=== PATIENT | male | born 1935 | race Caucasian/White ===

== ENCOUNTER 2016-07-19 09:36 | Inpatient (IN) | payer OTHER, MEDICARE ==
[~2016-07-19] VITALS: Ht 157.5 cm; Wt 76.7 kg
[~2016-07-19 09:36] MED LIST: LCTL45 PO; LEVO-459 PO; LSX20 PO; PROP20TA66 PO; PRT40 PO; SPRN100 PO; XFX550 PO
[2016-07-19] MEDS ORDERED: ALBUT/IPRATROP 3MG/0.5MG NEB 3 ML VIAL INH STA (10:33)
[2016-07-19] MEDS ORDERED: FOLI1TAB8 PO (10:45)
[2016-07-19] MEDS ORDERED: LACT10SO17 PO (10:45)
[2016-07-19] MEDS ORDERED: THIA100T11 PO (10:45)
[2016-07-19] MEDS ORDERED: MULT-506 PO (10:45)
[2016-07-19] MEDS ORDERED: SITA100T3 PO (10:45)
[2016-07-19] MEDS ORDERED: DOCU-94 PO (10:45)
[2016-07-19] MEDS ORDERED: PRLSR20 PO (10:45)
[2016-07-19] MEDS ORDERED: FURO-85 PO (10:45)
--- NOTE | 2016-07-19 11:10 | DIAGNOSTIC IMAGING REPORT ---
CHEST ONE VIEW PORTABLE CLINICAL HISTORY: Sepsis COMPARISON STUDY: 09/12/2014 FINDINGS: The heart is enlarged. There are bilateral interstitial opacities likely representing interstitial pulmonary edema although a interstitial inflammatory process could appear similar. There is no significant pleural fluid.[ IMPRESSION: Cardiomegaly and interstitial edema pattern. Clinical and radiographic follow-up is recommended. Electronically signed by: Moose Mancilla M.D. 07/19/2016 11:08 AM
[2016-07-19 11:23] LABS: BASO ABS # 0.09 K/uL (0-0.2); COMPLETE YES; EOS % 4.5 %; HEMATOCRIT 31.1 % (42-52); IG% 0.2 %; LYMPH % 17.2 %; LYMPH ABS # 0.77 K/uL (1.2-3.4); MEAN CELL VOLUME 102.6 fL (80-100); MEAN PLATELET VOLUME 10.4 fL (7.4-10.4); NEUT % 51.1 %; PLATELET COUNT 104 K/uL (130-400); RED BLOOD COUNT 3.03 M/uL (4.7-6.1); WHITE BLOOD COUNT 4.48 K/uL (4.8-10.8)
[2016-07-19] MEDS ORDERED: PIPERACILLIN/TAZOBACTAM 4.5 GM/100ML D5W IV STA (11:31)
[2016-07-19] MEDS ORDERED: DAPTOmycin IV 480 MG in SODIUM CHLORIDE 0.9% 50ML 50 ML IV STA (11:31)
[2016-07-19 11:43] LABS: INR 1.4 (0.9-1.1); PARTIAL THROMBOPLASTIN RATIO 1.2; PROTHROMBIN TIME (PATIENT) 15.7 SECONDS (9.0-12.0)
[2016-07-19] MEDS ORDERED: OSELTAMIVIR PHOSPHATE 75 MG CAP PO STA (11:52)
--- NOTE | 2016-07-19 11:55 | EMERGENCY ROOM VISIT NOTE ---
History Report prepared by Polly: Odette Juarez Under the Supervision of: Dr. Sal Schneider M.D. First contact with patient: 09:54 Chief Complaint: ILLNESS Stated Complaint: LIVER ISSUES, ABNORMAL LABS, DIZZY History of Present Illness The patient is a 80 year old male who presents to the Emergency Room with complaints of worsening illness that started one week ago. The patient has had his abdomen drained in the past. The patient's son states that the patient started to experience lower extremity edema 4 days ago. He took the patient to his PCP and they started him on medication that was supposed to resolve the edema in 2-3 days. When the patient's son visited him last night, he noticed that the medications were not working and the patient was more confused than normal. The patient is also experiencing a fever but when he was tested for a UTI at his PCP it was negative. The patient's son also states that the patient has gained 25 lbs of fluid weight. He states that the patient experiences similar symptoms whenever his ammonia is elevated. The patient's son adds that the "rattle" in the patient's chest is new since he saw his PCP. Source of History: family (son) Onset: one week ago Position: other (generalized) Quality: other (illness) Timing: worsening Associated Symptoms: + fevers Note: confusion, lower extremity edema Review of Systems See HPI for pertinent positives & negatives. A total of 10 systems reviewed and were otherwise negative. Past Medical & Surgical Medical Problems: (1) Influenza A, cirrhosis Family History No pertinent family history Social History Smoking Status: Former Smoker Alcohol Use: heavy Housing Status: lives with family Current/Historical Medications Scheduled Docusate Sodium (Colace), 1 CAP PO DAILY Folic Acid (Folvite), 1 MG PO DAILY Furosemide (Lasix), 20 MG PO DIRECTED Lactulose (Chronulac), 15 ML PO DAILY Multivitamin (Multivitamin), 1 TAB PO DAILY Omeprazole (Prilosec), 20 MG PO DAILY Propranolol HCl (Propranolol HCl), 20 MG PO BID Rifaximin (Xifaxan), 550 MG PO BID Sitagliptin Phosphate (Januvia), 100 MG PO DAILY Spironolactone (Spironolactone), 100 MG PO QAM Thiamine Hcl (Vitamin B-1), 100 MG PO DAILY Allergies Coded Allergies: No Known Allergies (Unverified , 07/19/16) Physical Exam Vital Signs Date Time Temp Pulse Resp B/P Pulse Ox O2 Delivery O2 Flow Rate FiO2 07/19/16 13:21 73 19 119/52 97 Nasal Cannula 3.0 07/19/16 12:46 88 Room Air 07/19/16 12:46 97 Nasal Cannula 3.0 07/19/16 12:10 69 20 113/56 91 Room Air 07/19/16 11:13 67 20 111/71 07/19/16 10:23 67 07/19/16 09:41 37.7 76 18 116/64 95 Room Air Physical Exam GENERAL: Patient is a healthy-appearing well-nourished older male HEAD: Normocephalic atraumatic EYES: Ocular movements intact pupils equal and react to light OROPHARYNX mucous membranes are moist no exudates present no erythema or edema present NECK: Supple no nuchal rigidity CHEST: Good equal expansion LUNGS: Clear and equal to auscultation CARDIAC: Normal S1 and S2 ABDOMEN: Soft nontender no guarding BACK: No CVA tenderness EXTREMITIES: No pain upon palpation normal muscle strength in all groups 2+ pitting edema bilaterally no clubbing or cyanosis NEURO: Patient is confused but following commands. Alert. Cranial Nerves 2-12 grossly intact Medical Decision & Procedures ER Provider Diagnostic Interpretation: X-ray results as stated below per interpretation by me and the radiologist: CHEST ONE VIEW PORTABLE CLINICAL HISTORY: Sepsis COMPARISON STUDY: 09/12/2014 FINDINGS: The heart is enlarged. There are bilateral interstitial opacities likely representing interstitial pulmonary edema although a interstitial inflammatory process could appear similar. There is no significant pleural fluid.[ IMPRESSION: Cardiomegaly and interstitial edema pattern. Clinical and radiographic follow-up is recommended. Electronically signed by: Moose Mancilla M.D. 07/19/2016 11:08 AM Laboratory Results 07/19/16 11:00 Red Blood Count 3.03, Mean Corpuscular Volume 102.6, Mean Corpuscular Hemoglobin 36.0, Mean Corpuscular Hemoglobin Concent 35.0, Mean Platelet Volume 10.4, Neutrophils (%) (Auto) 51.1, Lymphocytes (%) (Auto) 17.2, Monocytes (%) ( Auto) 25.0, Eosinophils (%) (Auto) 4.5, Basophils (%) (Auto) 2.0, Neutrophils # (Auto) 2.29, Lymphocytes # (Auto) 0.77, Monocytes # (Auto) 1.12, Eosinophils # ( Auto) 0.20, Basophils # (Auto) 0.09 07/19/16 11:00 Test 07/19/16 11:00 07/19/16 11:03 07/19/16 11:05 07/19/16 12:00 White Blood Count 4.48 K/uL (4.8-10.8) Red Blood Count 3.03 M/uL (4.7-6.1) Hemoglobin 10.9 g/dL (14.0-18.0) Hematocrit 31.1 % (42-52) Mean Corpuscular Volume 102.6 fL (80-100) Mean Corpuscular Hemoglobin 36.0 pg (25-34) Mean Corpuscular Hemoglobin Concent 35.0 g/dl (32-36) Platelet Count 104 K/uL (130-400) Mean Platelet Volume 10.4 fL (7.4-10.4) Neutrophils (%) (Auto) 51.1 % Lymphocytes (%) (Auto) 17.2 % Monocytes (%) (Auto) 25.0 % Eosinophils (%) (Auto) 4.5 % Basophils (%) (Auto) 2.0 % Neutrophils # (Auto) 2.29 K/uL (1.4-6.5) Lymphocytes # (Auto) 0.77 K/uL (1.2-3.4) Monocytes # (Auto) 1.12 K/uL (0.11-0.59) Eosinophils # (Auto) 0.20 K/uL (0-0.5) Basophils # (Auto) 0.09 K/uL (0-0.2) RDW Standard Deviation 61.8 fL (36.4-46.3) RDW Coefficient of Variation 16.5 % (11.5-14.5) Immature Granulocyte % (Auto) 0.2 % Immature Granulocyte # (Auto) 0.01 K/uL (0.00-0.02) Prothrombin Time 15.7 SECONDS (9.0-12.0) Prothromb Time International Ratio 1.4 (0.9-1.1) Activated Partial Thromboplast Time 31.7 SECONDS (21.0-31.0) Partial Thromboplastin Ratio 1.2 Anion Gap 10.0 mmol/L (3-11) Est Creatinine Clear Calc Drug Dose 34.5 ml/min Estimated GFR () 49.5 Estimated GFR (Non- 42.7 BUN/Creatinine Ratio 12.5 (10-20) Calcium Level 8.7 mg/dl (8.5-10.1) Total Bilirubin 2.4 mg/dl (0.2-1) Aspartate Amino Transf (AST/SGOT) 77 U/L (15-37) Alanine Aminotransferase (ALT/SGPT) 26 U/L (12-78) Alkaline Phosphatase 111 U/L (45-117) Ammonia < 10.0 umol/L (11-32) Total Creatine Kinase 139 U/L (39-308) Creatine Kinase MB 0.8 ng/ml (0.5-3.6) Creatine Kinase MB Ratio 0.6 (0-3.0) Troponin I 0.082 ng/ml (0-0.045) Total Protein 5.9 gm/dl (6.4-8.2) Albumin 2.3 gm/dl (3.4-5.0) Globulin 3.6 gm/dl (2.5-4.0) Albumin/Globulin Ratio 0.6 (0.9-2) Influenza Type A Antigen POS for Influ A (NEG) Influenza Type B Antigen Neg for Influ B (NEG) Bedside Lactic Acid Venous 2.41 mmol/L (0.90-1.70) Urine Color DK YELLOW Urine Appearance CLEAR (CLEAR) Urine pH 5.0 (4.5-7.5) Urine Specific [place] 1.016 (1.000-1.030) Urine Protein NEG (NEG) Urine Glucose (UA) NEG (NEG) Urine Ketones NEG (NEG) Urine Occult Blood NEG (NEG) Urine Nitrite NEG (NEG) Urine Bilirubin NEG (NEG) Urine Urobilinogen NEG (NEG) Urine Leukocyte Esterase NEG (NEG) Urine WBC (Auto) 0 /hpf (0-5) Urine RBC (Auto) 0-4 /hpf (0-4) Urine Hyaline Casts (Auto) 1-5 /lpf (0-5) Urine Epithelial Cells (Auto) 5-10 /lpf (0-5) Urine Bacteria (Auto) NEG (NEG) Test 07/19/16 13:30 Labs reviewed by ED physician. Medications Administered Medications (Trade) Dose Ordered Sig/Christi Route Start Time Stop Time Status Last Admin Dose Admin Albuterol/ Ipratropium (Duoneb) 3 ml NOW STAT INH 07/19/16 10:33 07/19/16 10:35 DC 07/19/16 11:11 3 ML Piperacillin Sod/ Tazobactam Sod 4.5 gm 4.5 gm NOW STAT IV 07/19/16 11:31 07/19/16 11:32 DC 07/19/16 12:04 4.5 GM Daptomycin/Sodium Chloride (Cubicin IV/Nss 50ml) 59.6 ml @ 100 mls/hr NOW STAT IV 07/19/16 11:31 07/19/16 12:06 DC 07/19/16 12:40 100 MLS/HR Oseltamivir Phosphate 75 mg 75 mg NOW STAT PO 07/19/16 11:52 07/19/16 11:53 DC 07/19/16 12:05 75 MG Sodium Chloride (Nss 1000ml) 1,000 ml @ 999 mls/hr Q1H1M STAT IV 07/19/16 11:58 07/19/16 12:58 DC 07/19/16 12:06 999 MLS/HR Ibuprofen (Motrin Tab) 600 mg NOW STAT PO 07/19/16 11:58 07/19/16 11:59 DC 07/19/16 12:40 600 MG ECG Indication: altered mental status Rate (beats per minute): 75 Rhythm: sinus rhythm Findings: no acute ischemic change, no ectopy, other (old inferior infarct) ED Course 1029: Past medical records reviewed. The patient was evaluated in room C3. A complete history and physical examination was performed. 1033: Ordered DuoNeb 3 ml INH 1131: Ordered Daptomycin 480 mg/Sodium Chloride 59.6 ml @ 100 mls/hr IV, Zosyn 4.5 gm IV 1146: Upon reexamination the patient is resting comfortably. I discussed results and treatment plan with the patient. He verbalizes agreement and understanding. The patient will be evaluated for further management. 1152: Ordered Tamiflu Cap 75 mg PO 1158: Ordered Ibuprofen 600 mg PO, Sodium Chloride 1000 ml @ 999 mls/hr IV 1201: I discussed the patient's case with Dr. Eduardo LOPEZ, he has agreed to evaluate the patient for further management and care. Medical Decision Differential diagnosis: Etiologies such as metabolic, infection, hypo/hyperglycemia, electrolyte abnormalities, cardiac sources, intracerebral event, toxicologic, neurologic, as well as others were entertained. This is an 80-year-old male who presents to the emergency department complaining of altered mental status. The patient has been running fevers. For this reason a lactate was obtained along with blood cultures. The patient is positive for influenza. I do not believe the patient can be taking care of himself at home for this reason I did discuss the case with the hospitalist who agreed to admit the patient. The patient was given a DuoNeb breathing treatment in the emergency department and started on antibiotics. He was then started on Tamiflu and his flu swab came back positive. Both patient and family were in agreement with the treatment plan. Consults Time Called: 1145 Consulting Physician: Dr. Eduarod JASMINE Returned Call: 1201 I discussed the patient's case with Dr. Eduardo JASMINE, he has agreed to evaluate the patient for further management and care. Impression Primary Impression: Altered mental status Additional Impression: Influenza A Critical Care I have personally spent greater than 30 minutes of critical care time in the direct management of this patient. This includes bedside care, interpretation of diagnostic studies, and testing, discussion with consultants, patient, and family members, and other required patient management activities. This 30 minutes is in excess of all separately billable procedures. Scribe Attestation The scribe's documentation has been prepared under my direction and personally reviewed by me in its entirety. I confirm that the note above accurately reflects all work, treatment, procedures, and medical decision making performed by me. Departure Information Dispostion Being Evaluated By Hospitalist Edinson Figueredo D.O. (PCP) Patient Instructions A Signature Page, My [facility]
[2016-07-19 11:57] LABS: BUN/CREATININE RATIO 12.5 (10-20); CALCIUM 8.7 mg/dl (8.5-10.1); CREATININE 1.5 mg/dl (0.60-1.40); POTASSIUM 3.9 mmol/L (3.5-5.1)
[2016-07-19] MEDS ORDERED: SODIUM CHLORIDE 0.9% 1000ML 1,000 ML IV STA (11:58)
[2016-07-19] MEDS ORDERED: IBUPROFEN 600 MG TAB PO STA (11:58)
[2016-07-19 12:07] LABS: ALB/GLOB RATIO 0.6 (0.9-2); CKMB/CK RATIO 0.6 (0-3.0)
[2016-07-19 12:27] LABS: URINE APPEARANCE CLEAR (CLEAR); URINE BILIRUBIN NEG (NEG); URINE COLOR DK YELLOW; URINE NITRITE NEG (NEG); URINE SPECIFIC GRAVITY 1.016 (1.000-1.030); UROBILINOGEN NEG (NEG); ZZUR CULT IF INDIC CLEAN CATCH NO
[2016-07-19 12:29] LABS: MANUAL MICROSCOPIC REQUIRED? NO; REVIEW REQ? NO
[2016-07-19] MEDS ORDERED: ONDANSETRON INJ 2 MG/ML 2 ML VIAL IV PRN (13:00)
[2016-07-19] MEDS ORDERED: ACETAMINOPHEN 325 MG TAB PO PRN (13:00)
--- NOTE | 2016-07-19 14:11 | History and Physical ---
History & Physical Date & Time of Service: Jul 19, 2016 at 13:29 Chief Complaint: Liver Issues, Abnormal Labs, Dizzy Primary Care Physician: Edinson Guevara D.O. History of Present Illness Source: patient, family This is an 80 yo M with PMhx Cirrhosis of the liver, hepatic encephalopathy, dementia, who presents to the ED after one day of confusion, bowel and bladder incontinence, worsening cough and increased peripheral edema within the past week. History is mainly supplied by the patient's son, SIOMARA. The patient's other son is whom he lives with, but currently not present. Last Thursday the patient went to see his PCP for increased edema of the legs, there his lasix was increased from 20 mg to 40 mg and told to take the increased dose for 7days. SIOMARA was out of town for the past 5 days and when he returned, the patient had developed worsening "rattling" cough and appeared to be slightly more confused, he had one episode of loose stools last evening. This morning he developed bowel incontinence has had several episodes of loose stools. No vomiting or nausea. Son reports the patient appeared to be SOB with ambulation, although the patient denies this. At baseline the patient is not oriented to date or time. Past Medical/Surgical History 1. Cirrhosis of the liver 2. Hepatic Encephalopathy 3. Dementia Social History Smoking Status: Former Smoker Smokeless Tobacco Use: No Alcohol Use: previous alcoholism Drug Use: none Housing status: lives with family Occupational Status: retired Allergies Coded Allergies: No Known Allergies (Unverified , 07/19/16) Home Medications Scheduled Docusate Sodium (Colace), 1 CAP PO DAILY Folic Acid (Folvite), 1 MG PO DAILY Furosemide (Lasix), 20 MG PO DIRECTED Lactulose (Chronulac), 15 ML PO DAILY Multivitamin (Multivitamin), 1 TAB PO DAILY Omeprazole (Prilosec), 20 MG PO DAILY Propranolol HCl (Propranolol HCl), 20 MG PO BID Rifaximin (Xifaxan), 550 MG PO BID Sitagliptin Phosphate (Januvia), 100 MG PO DAILY Spironolactone (Spironolactone), 100 MG PO QAM Thiamine Hcl (Vitamin B-1), 100 MG PO DAILY Review of Systems Constitutional: No chills, No fever, No sweats ENT: No nasal symptoms, No sore throat, No tinnitus Respiratory: + cough, + shortness of breath, No sputum Cardiovascular: No chest pain, No palpitations Abdomen: No constipation, No diarrhea, No nausea, No pain, No vomiting Musculoskeletal: + swelling, No calf pain, No joint pain Neurologic: No numbness/tingling, No paralysis Physical Exam Vital Signs Date Time Temp Pulse Resp B/P Pulse Ox O2 Delivery O2 Flow Rate FiO2 07/19/16 13:21 73 19 119/52 97 Nasal Cannula 3.0 07/19/16 12:46 88 Room Air 07/19/16 12:46 97 Nasal Cannula 3.0 07/19/16 12:10 69 20 113/56 91 Room Air 07/19/16 11:13 67 20 111/71 07/19/16 10:23 67 07/19/16 09:41 37.7 76 18 116/64 95 Room Air General Appearance: WD/WN, no apparent distress, + pertinent finding ( generalized anasarca) Head: normocephalic, atraumatic Eyes: PERRL, EOMI ENT: pharynx normal Neck: supple, no JVD Respiratory/Chest: lungs clear, no respiratory distress, no accessory muscle use Cardiovascular: regular rate, rhythm, no JVD Abdomen/GI: non tender, + distended, + pertinent finding (generalized anasarca) Back: normal inspection, no CVA tenderness Extremities/Musculoskelatal: no calf tenderness, + pertinent finding (2+ pitting edema of BLE up to thighs, nontender to palpation.) Neurologic/Psych: no motor/sensory deficits, alert, + disoriented Skin: normal color, warm/dry Diagnostics Laboratory Results Results Past 24 Hours Test 07/19/16 11:00 07/19/16 11:03 07/19/16 11:05 07/19/16 12:00 Range/Units White Blood Count 4.48 4.8-10.8 K/uL Red Blood Count 3.03 4.7-6.1 M/uL Hemoglobin 10.9 14.0-18.0 g/dL Hematocrit 31.1 42-52 % Mean Corpuscular Volume 102.6 80-100 fL Mean Corpuscular Hemoglobin 36.0 25-34 pg Mean Corpuscular Hemoglobin Concent 35.0 32-36 g/dl Platelet Count 104 130-400 K/uL Mean Platelet Volume 10.4 7.4-10.4 fL Neutrophils (%) (Auto) 51.1 % Lymphocytes (%) (Auto) 17.2 % Monocytes (%) (Auto) 25.0 % Eosinophils (%) (Auto) 4.5 % Basophils (%) (Auto) 2.0 % Neutrophils # (Auto) 2.29 1.4-6.5 K/uL Lymphocytes # (Auto) 0.77 1.2-3.4 K/uL Monocytes # (Auto) 1.12 0.11-0.59 K/uL Eosinophils # (Auto) 0.20 0-0.5 K/uL Basophils # (Auto) 0.09 0-0.2 K/uL RDW Standard Deviation 61.8 36.4-46.3 fL RDW Coefficient of Variation 16.5 11.5-14.5 % Immature Granulocyte % (Auto) 0.2 % Immature Granulocyte # (Auto) 0.01 0.00-0.02 K/uL Prothrombin Time 15.7 9.0-12.0 SECONDS Prothromb Time International Ratio 1.4 0.9-1.1 Activated Partial Thromboplast Time 31.7 21.0-31.0 SECONDS Partial Thromboplastin Ratio 1.2 Sodium Level 140 136-145 mmol/L Potassium Level 3.9 3.5-5.1 mmol/L Chloride Level 102 98-107 mmol/L Carbon Dioxide Level 28 21-32 mmol/L Anion Gap 10.0 3-11 mmol/L Blood Urea Nitrogen 19 7-18 mg/dl Creatinine 1.50 0.60-1.40 mg/dl Est Creatinine Clear Calc Drug Dose 34.5 ml/min Estimated GFR () 49.5 Estimated GFR (Non- 42.7 BUN/Creatinine Ratio 12.5 10-20 Random Glucose 87 70-99 mg/dl Calcium Level 8.7 8.5-10.1 mg/dl Total Bilirubin 2.4 0.2-1 mg/dl Aspartate Amino Transf (AST/SGOT) 77 15-37 U/L Alanine Aminotransferase (ALT/SGPT) 26 12-78 U/L Alkaline Phosphatase 111 45-117 U/L Ammonia < 10.0 11-32 umol/L Total Creatine Kinase 139 39-308 U/L Creatine Kinase MB 0.8 0.5-3.6 ng/ml Creatine Kinase MB Ratio 0.6 0-3.0 Troponin I 0.082 0-0.045 ng/ml Total Protein 5.9 6.4-8.2 gm/dl Albumin 2.3 3.4-5.0 gm/dl Globulin 3.6 2.5-4.0 gm/dl Albumin/Globulin Ratio 0.6 0.9-2 Influenza Type A Antigen POS for Influ A NEG Influenza Type B Antigen Neg for Influ B NEG Bedside Lactic Acid Venous 2.41 0.90-1.70 mmol/L Urine Color DK YELLOW Urine Appearance CLEAR CLEAR Urine pH 5.0 4.5-7.5 Urine Specific [place] 1.016 1.000-1.030 Urine Protein NEG NEG Urine Glucose (UA) NEG NEG Urine Ketones NEG NEG Urine Occult Blood NEG NEG Urine Nitrite NEG NEG Urine Bilirubin NEG NEG Urine Urobilinogen NEG NEG Urine Leukocyte Esterase NEG NEG Urine WBC (Auto) 0 0-5 /hpf Urine RBC (Auto) 0-4 0-4 /hpf Urine Hyaline Casts (Auto) 1-5 0-5 /lpf Urine Epithelial Cells (Auto) 5-10 0-5 /lpf Urine Bacteria (Auto) NEG NEG Test 07/19/16 13:00 Range/Units Microbiology Results 07/19/16 Blood Culture, Received Pending 07/19/16 Blood Culture, Received Pending Diagnostic Radiology Liver ultrasound HISTORY: Hepatic cirrhosis FINDINGS: Ultrasound evaluation of the right upper quadrant confirms presence of multiple gallstones within the gallbladder lumen. Gallbladder wall shows no evidence for significant thickening. The hepatic common mild duct is somewhat distended at 8 mm distally. Liver shows a outer cortical scalloping and mild in homogeneity. Potentially is reversal of flow within the portal venous structure. Right kidney is negative for hydronephrosis. Pancreas is poorly seen due to overlying bowel content. IMPRESSION:. 1. Gallstones. 2. Expected bile duct level millimeters with intrahepatic there is normal. 3. Probable hepatic cirrhosis. 4. Mild reversal of vascular flow within the portal vein. Electronically signed by: Alberto Ferrari M.D. 05/04/2015 9:13 AM CHEST ONE VIEW PORTABLE CLINICAL HISTORY: Sepsis COMPARISON STUDY: 09/12/2014 FINDINGS: The heart is enlarged. There are bilateral interstitial opacities likely representing interstitial pulmonary edema although a interstitial inflammatory process could appear similar. There is no significant pleural fluid.[ IMPRESSION: Cardiomegaly and interstitial edema pattern. Clinical and radiographic follow-up is recommended. Electronically signed by: Moose Mancilla M.D. 07/19/2016 11:08 AM Impression Assessment and Plan This is an 80 yo M with PMhx Cirrhosis of the liver, hepatic encephalopathy, dementia, who presents to the ED after one day of confusion, bowel and bladder incontinence, worsening cough and increased peripheral edema within the past week. Lactic Acidosis / Metabolic Encephalopathy secondary to Influenza A - Admit to med/surg - Pt Influenza A + on screening - tamiflu started - CXR reviewed as above showing increased interstitial edema - Lactic acid= 2.41 upon admission, administered 1 L NSS bolus in the ED, will recheck lactic acid now - No further IVFs at this time due to peripheral edema and abdominal anasarca - O2 sats mid 90s on 3L - Will check Echo - No need for CT of the head as pt remembers falling, no LOC, no trauma to the head - Supportive therapy with tylenol, cough aids, incentive spirometry - Loose bowels likely related to GI influenza, will check stool studies to rule out. - PT/OT consulted Cirrhosis - Liver U/S reviewed as above - Severe pitting edema of BLE - no fluids with this as pt is eating and drinking without difficulty - Continue lactulose and rifaximin - pt with loose stools likely due to GI influenza - Ammonia level is<10 - INR =1.4 Dementia - Pt is not oriented to time/date or place at baseline, cannot recall short term events DVT ppx: teds, scds CODE STATUS: Full Code, Pts children plan to discuss this further and notify staff if any changes to their decision. Disposition: Lives with son, from home. Level of Care Med/Surg Advanced Directives Existing Advance Directive: No Existing Living Will: No Existing Power of Bending Press Operator: No Existing Health Care Proxy: No Resuscitation Status FULL RESUSCITATION VTE Prophylaxis VTE Risk Assessment Done? Y/N: Yes Risk Level: Low
[2016-07-19 16:23] VITALS: BP 108/55; PULSE 68; TEMP 36.7; O2SAT 94; Ht 157.5 cm; Wt 76.7 kg
--- NOTE | 2016-07-19 16:38 | DIAGNOSTIC IMAGING REPORT ---
RIGHT SHOULDER MIN 2 VIEWS ROUTINE CLINICAL HISTORY: Right shoulder pain status post trauma COMPARISON: None. DISCUSSION: No fractures or dislocations are visualized. There are no visible periarticular calcifications present. The heart is enlarged. There is an interstitial pulmonary edema pattern. IMPRESSION: No fractures or dislocations identified. Electronically signed by: Moose Mancilla M.D. 07/19/2016 4:36 PM
[2016-07-19] MEDS: RIFAXIMIN TAB 550 MG TAB PO SCH (19:42)
[2016-07-20 00:14] VITALS: BP 92/51; PULSE 96; TEMP 36.6; O2SAT 96
[2016-07-20 06:45] LABS: HEMATOCRIT 27.6 % (42-52); MEAN CELL VOLUME 104.9 fL (80-100); MEAN CORPUSCULAR HEMOGLOBIN 36.5 pg (25-34); MEAN CORPUSCULAR HGB CONC 34.8 g/dl (32-36); RED BLOOD COUNT 2.63 M/uL (4.7-6.1); WHITE BLOOD COUNT 4.47 K/uL (4.8-10.8)
[2016-07-20 07:11] LABS: MEAN PLATELET VOLUME 9.7 fL (7.4-10.4); PLATELET COUNT 85 K/uL (130-400)
[2016-07-20 07:12] LABS: BASO % 1.3 %; BASO ABS # 0.06 K/uL (0-0.2); COMPLETE YES; EOS % 11.6 %; IG% 0.2 %; LYMPH % 18.6 %; LYMPH ABS # 0.83 K/uL (1.2-3.4); MONO % 19.2 %; NEUT % 49.1 %; PLT ESTIMATE DECREASED
[2016-07-20 07:13] LABS: BUN/CREATININE RATIO 12.2 (10-20); CALCIUM 8.2 mg/dl (8.5-10.1); CREATININE 1.7 mg/dl (0.60-1.40); POTASSIUM 3.7 mmol/L (3.5-5.1)
[2016-07-20 08:07] VITALS: BP 110/52; PULSE 87; TEMP 36.8; O2SAT 93
[2016-07-20] MEDS: SITAGLIPTIN 100 MG TAB PO SCH (08:38)
[2016-07-20] MEDS: THIAMINE HCL 100 MG TAB PO SCH (08:38)
[2016-07-20] MEDS: RIFAXIMIN TAB 550 MG TAB PO SCH ×2 (08:38→20:27)
[2016-07-20] MEDS: PANTOprazole SOD 40 MG TAB PO SCH (08:38)
[2016-07-20] MEDS: LACTULOSE SYRUP 10 GM/15 ML BTL 473 ML PO SCH (09:03)
[2016-07-20 09:27] VITALS: BP 141/70; O2SAT 100
[2016-07-20] MEDS ORDERED: SPIRONOLACTONE 100 MG TAB PO ONE (09:30)
[2016-07-20] MEDS ORDERED: FUROSEMIDE 40 MG TAB PO ONE (09:30)
[2016-07-20 15:25] VITALS: BP 118/73; PULSE 89; TEMP 36.7; O2SAT 96
--- NOTE | 2016-07-20 16:18 | Progress Note ---
Subjective Date of Service: Jul 20, 2016. Subjective Pt evaluation today including: conversation w/ patient, physical exam, lab review, review of inpatient medication list Pain: no pain today PO Intake: adequate Voiding: no voiding problems no issues overnight patient oriented to person and place, unsure of month or year no complaints except for some weakness Problem List Medical Problems: (1) Altered mental status Status: Acute (2) Influenza A Status: Acute Review of Systems Constitutional: + fatigue, + weakness Cardiac: + edema Neurologic: + balance problems, + weakness All Other Systems: Reviewed and Negative Medications Current Inpatient Medications Medications (Trade) Dose Ordered Sig/Christi Route Start Time Stop Time Status Last Admin Dose Admin Acetaminophen (Tylenol Tab) 650 mg Q4H PRN PO 07/19/16 13:00 08/18/16 12:59 Ondansetron HCl (Zofran Inj) 4 mg Q6H PRN IV 07/19/16 13:00 08/18/16 12:59 Lactulose (Chronulac Syrup) 10 gm DAILY PO 07/20/16 08:00 08/19/16 08:59 07/20/16 09:03 10 GM Rifaximin (Xifaxan Tab) 550 mg BID PO 07/19/16 20:00 08/18/16 20:59 07/20/16 08:38 550 MG Sitagliptin Phosphate (Januvia Tab) 50 mg DAILY PO 07/20/16 08:00 08/19/16 08:59 07/20/16 08:38 50 MG Thiamine HCl (Vitamin B-1 Tab) 100 mg DAILY PO 07/20/16 08:00 08/19/16 08:59 07/20/16 08:38 100 MG Pantoprazole Sodium (Protonix Tab) 40 mg DAILY PO 07/20/16 08:00 08/19/16 08:59 07/20/16 08:38 40 MG Propranolol HCl (Inderal Tab) 20 mg BID PO 07/20/16 20:00 08/19/16 19:59 Spironolactone (Aldactone Tab) 100 mg QAM PO 07/21/16 08:00 08/20/16 07:59 Furosemide (Lasix tab) 40 mg QAM PO 07/21/16 08:00 08/20/16 07:59 Objective Vital Signs Date Time Temp Pulse Resp B/P Pulse Ox O2 Delivery O2 Flow Rate FiO2 07/20/16 15:25 36.7 89 20 118/73 96 07/20/16 15:15 Nasal Cannula 3.0 07/20/16 09:27 100 07/20/16 08:07 36.8 87 20 110/52 93 2.0 07/20/16 08:00 Nasal Cannula 3.0 07/20/16 00:30 Nasal Cannula 3.0 07/20/16 00:14 36.6 96 18 92/51 96 Nasal Cannula 2.0 07/19/16 19:25 Nasal Cannula 07/19/16 16:23 36.7 68 18 108/55 94 Nasal Cannula 3.0 Physical Exam General Appearance: WD/WN, no apparent distress Eyes: normal inspection, EOMI, sclerae normal ENT: normal ENT inspection, hearing grossly normal, pharynx normal Neck: supple, no adenopathy, no JVD, trachea midline Respiratory/Chest: chest non-tender, lungs clear, normal breath sounds, no respiratory distress, no accessory muscle use Cardiovascular: regular rate, rhythm, no gallop, no JVD, no murmur Abdomen: normal bowel sounds, non tender, soft, no organomegaly Extremities: normal range of motion, non-tender, normal inspection, no calf tenderness, + pedal edema (pitting, 2 plus bilaterally) Neurologic/Psychiatric: water pollution specialist II-XII nml as tested, alert, normal mood/affect, + abnormal gait, + motor weakness, + disoriented (to time, oriented person and place) Skin: normal color, warm/dry, no rash Laboratory Results Last 24 Hours Test 07/20/16 06:24 White Blood Count 4.47 K/uL Red Blood Count 2.63 M/uL Hemoglobin 9.6 g/dL Hematocrit 27.6 % Mean Corpuscular Volume 104.9 fL Mean Corpuscular Hemoglobin 36.5 pg Mean Corpuscular Hemoglobin Concent 34.8 g/dl Platelet Count 85 K/uL Mean Platelet Volume 9.7 fL Neutrophils (%) (Auto) 49.1 % Lymphocytes (%) (Auto) 18.6 % Monocytes (%) (Auto) 19.2 % Eosinophils (%) (Auto) 11.6 % Basophils (%) (Auto) 1.3 % Neutrophils # (Auto) 2.19 K/uL Lymphocytes # (Auto) 0.83 K/uL Monocytes # (Auto) 0.86 K/uL Eosinophils # (Auto) 0.52 K/uL Basophils # (Auto) 0.06 K/uL RDW Standard Deviation 63.5 fL RDW Coefficient of Variation 16.6 % Immature Granulocyte % (Auto) 0.2 % Immature Granulocyte # (Auto) 0.01 K/uL Platelet Estimate DECREASED Sodium Level 140 mmol/L Potassium Level 3.7 mmol/L Chloride Level 106 mmol/L Carbon Dioxide Level 27 mmol/L Anion Gap 7.0 mmol/L Blood Urea Nitrogen 21 mg/dl Creatinine 1.70 mg/dl Est Creatinine Clear Calc Drug Dose 30.1 ml/min Estimated GFR () 42.6 Estimated GFR (Non- 36.7 BUN/Creatinine Ratio 12.2 Random Glucose 79 mg/dl Calcium Level 8.2 mg/dl Assessment and Plan 80 yo male with history of cirrhosis, well compensated normally on Lactulose, Rifaximin as well as Lasix and Aldactone. 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
[2016-07-20 20:25] VITALS: BP 117/63; PULSE 90; TEMP 36.7; O2SAT 94
[2016-07-20] MEDS: PROPRANOLOL HCL 20 MG TAB PO SCH (20:27)
[2016-07-21] VITALS (8 sets, daily range): BP systolic 111–117; BP diastolic 62–63; PULSE 60–85; TEMP 36.5–36.8; O2SAT 85–99
[2016-07-21 06:10] LABS: HEMATOCRIT 26.1 % (42-52); MEAN CELL VOLUME 104.8 fL (80-100); MEAN CORPUSCULAR HEMOGLOBIN 36.9 pg (25-34); MEAN CORPUSCULAR HGB CONC 35.2 g/dl (32-36); RED BLOOD COUNT 2.49 M/uL (4.7-6.1)
[2016-07-21 06:34] LABS: BUN/CREATININE RATIO 11.5 (10-20); CALCIUM 7.9 mg/dl (8.5-10.1); CREATININE 1.7 mg/dl (0.60-1.40); POTASSIUM 3.8 mmol/L (3.5-5.1)
[2016-07-21 06:41] LABS: MEAN PLATELET VOLUME 10.6 fL (7.4-10.4); PLATELET COUNT 85 K/uL (130-400)
[2016-07-21 06:43] LABS: BASO % 1.3 %; BASO ABS # 0.06 K/uL (0-0.2); COMPLETE YES; EOS % 7.8 %; IG% 0.2 %; LARGE PLATELETS 1+; LYMPH % 25.4 %; LYMPH ABS # 1.17 K/uL (1.2-3.4); MONO % 16.1 %; NEUT % 49.2 %
[2016-07-21] MEDS: THIAMINE HCL 100 MG TAB PO SCH (07:23)
[2016-07-21] MEDS: SITAGLIPTIN 100 MG TAB PO SCH (07:23)
[2016-07-21] MEDS: PROPRANOLOL HCL 20 MG TAB PO SCH ×2 (07:23→20:00)
[2016-07-21] MEDS: PANTOprazole SOD 40 MG TAB PO SCH (07:23)
[2016-07-21] MEDS: RIFAXIMIN TAB 550 MG TAB PO SCH ×2 (07:24→20:00)
[2016-07-21] MEDS: SPIRONOLACTONE 100 MG TAB PO SCH (07:24)
[2016-07-21] MEDS: LACTULOSE SYRUP 10 GM/15 ML BTL 473 ML PO SCH (07:26)
[2016-07-21] MEDS: FUROSEMIDE 40 MG TAB PO SCH (07:26)
--- NOTE | 2016-07-21 09:08 | Progress Note ---
Subjective Date of Service: Jul 21, 2016. Subjective Pt evaluation today including: conversation w/ patient, physical exam, chart review, lab review, review of studies, conversation w/ sql consultant, review of inpatient medication list Feeling better, but the nurse report possible dropped to 85 when out of bed to the restroom and in room air, resume NC O2, oxygen level improved when on nasal cannula oxygen Report has history of smoking, still has mild cough, pleasant conversational Problem List Medical Problems: (1) Altered mental status Status: Acute (2) Influenza A Status: Acute Review of Systems Constitutional: + fatigue, No chills, No fever, No problem reported, No sweats , No weakness, No weight loss Eyes: No diplopia, No discharge, No eye pain, No redness, No worsening of vision ENT: No dental problems, No hearing loss, No nasal symptoms, No sore throat, No tinnitus, No trouble swallowing, No unusual epistaxis Respiratory: + cough, + shortness of breath, + wheezing, No dyspnea at rest, No dyspnea on exertion, No hemoptysis, No sputum Cardiac: + edema, No PND, No chest pain, No claudication, No orthopnea, No palpitations Abdomen: No constipation, No diarrhea, No nausea, No pain, No vomiting Musculoskeletal: No calf pain, No joint pain, No muscle pain, No swelling Male : No dysuria, No hematuria, No incontinence, No nocturia more than once/ night, No slowing stream, No urinary frequency Neurologic: No balance problems, No memory loss, No numbness/tingling, No paralysis, No vertigo, No weakness Psychiatric: No anhedonism, No anxiety, No depression symptoms, No insomnia, No substance abuse Heme: No abnormal bleeding/bruising, No clotting problems, No night sweats, No swollen lymph nodes Endo: No excessive thirst, No excessive urination, No fatigue Skin: No bleeding, No color change, No itch, No new/changing skin lesions, No rash Objective Vital Signs Date Time Temp Pulse Resp B/P Pulse Ox O2 Delivery O2 Flow Rate FiO2 07/21/16 08:00 Nasal Cannula 3.0 07/21/16 07:49 36.5 74 20 113/63 95 3.0 07/21/16 07:40 85 Room Air 07/21/16 00:06 36.8 85 89 117/62 99 Nasal Cannula 3.0 07/21/16 00:00 Nasal Cannula 3.0 07/20/16 20:25 36.7 90 18 117/63 94 Room Air 07/20/16 20:00 Nasal Cannula 3.0 07/20/16 15:25 36.7 89 20 118/73 96 07/20/16 15:15 Nasal Cannula 3.0 07/20/16 09:27 100 Physical Exam General Appearance: WD/WN, no apparent distress, + obese Eyes: normal inspection, PERRL, EOMI, sclerae normal ENT: normal ENT inspection, hearing grossly normal, pharynx normal Neck: supple, no adenopathy, thyroid normal, no JVD, no carotid bruits, trachea midline Respiratory/Chest: chest non-tender, no respiratory distress, no accessory muscle use, + decreased breath sounds, + rales, + wheezing (mild) Cardiovascular: regular rate, rhythm, no edema, no gallop, no JVD, no murmur Abdomen: normal bowel sounds, non tender, soft, no organomegaly, no pulsatile mass Extremities: normal range of motion, non-tender, normal inspection, no pedal edema, no calf tenderness, normal capillary refill, pelvis stable, + swelling Neurologic/Psychiatric: continuous improvement consultant II-XII nml as tested, no motor/sensory deficits, alert, normal mood/affect, oriented x 3 Skin: normal color, warm/dry, no rash Lymphatic: no adenopathy Laboratory Results Last 24 Hours Test 07/21/16 05:42 07/21/16 08:17 White Blood Count 4.60 K/uL Red Blood Count 2.49 M/uL Hemoglobin 9.2 g/dL Hematocrit 26.1 % Mean Corpuscular Volume 104.8 fL Mean Corpuscular Hemoglobin 36.9 pg Mean Corpuscular Hemoglobin Concent 35.2 g/dl Platelet Count 85 K/uL Mean Platelet Volume 10.6 fL Neutrophils (%) (Auto) 49.2 % Lymphocytes (%) (Auto) 25.4 % Monocytes (%) (Auto) 16.1 % Eosinophils (%) (Auto) 7.8 % Basophils (%) (Auto) 1.3 % Neutrophils # (Auto) 2.26 K/uL Lymphocytes # (Auto) 1.17 K/uL Monocytes # (Auto) 0.74 K/uL Eosinophils # (Auto) 0.36 K/uL Basophils # (Auto) 0.06 K/uL RDW Standard Deviation 63.4 fL RDW Coefficient of Variation 16.5 % Immature Granulocyte % (Auto) 0.2 % Immature Granulocyte # (Auto) 0.01 K/uL Large Platelets 1+ Sodium Level 142 mmol/L Potassium Level 3.8 mmol/L Chloride Level 106 mmol/L Carbon Dioxide Level 27 mmol/L Anion Gap 9.0 mmol/L Blood Urea Nitrogen 20 mg/dl Creatinine 1.70 mg/dl Est Creatinine Clear Calc Drug Dose 30.1 ml/min Estimated GFR () 42.6 Estimated GFR (Non- 36.7 BUN/Creatinine Ratio 11.5 Random Glucose 79 mg/dl Calcium Level 7.9 mg/dl Assessment and Plan 80 yo male with history of cirrhosis, well compensated normally on Lactulose, Rifaximin as well as Lasix and Aldactone. Admitted on 07/19/2016 with increased bowel frequency, confusion, hypoxia, weakness - Acute influenza infection: supportive care, Tamiflu, no fluids needed as he is eating and drinking well - Hypoxia: due to influenza, or other etiology, differential diagnoses include a pulmonary edema, CHF, or acute PE Upon admission chest x-ray was done no large infiltrates on CXR, for now patient seems not able to wean off oxygen I ordered an repeated chest x-ray, echo was done last night pending report, I'm checking TSH, Bnp, Patient is in minimal elevated troponin likely because of CK D stage III, I don' t feel he has PE for now, If we not able to figure out why he is hypoxic will planning to do VQ scan - Diarrhea: has not had any stools for sample yet so diarrhea must be improving , will check for C diff and culture stools always loose with Lactulose - 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, stable, however has significant lower extremity swelling, I'm checking urine protein and creatinine ratio to have further studies - Bilateral lower extremity edema with history of liver cirrhosis, I feel is because of hypo-protein and more nutrition, but to hypothyroidism, CHF, CK D are in the differential diagnosis - cirrhosis with increased peripheral edema: resume Aldactone and Lasix, - Right shoulder pain: fell at home, x-ray shows no fractures - Weakness: PT recommended that he can return home once medically stable I called to patient's son updated him patient's conditions, and explained what is going on, Son report to patient can go to rehabilitation if needed w e'll follow-up input from therapy consultations, Continued [facility] stay due to: home environment unsafe for pt Discharge planning: uncertain
[2016-07-21 09:16] LABS: THYROID STIMULATING HORMONE 0.605 uIu/ml (0.300-4.500)
--- NOTE | 2016-07-21 09:49 | DIAGNOSTIC IMAGING REPORT ---
CHEST 2 VIEWS ROUTINE HISTORY: hypoxia with flu, to rule out pna, or pulm edema COMPARISON: Chest 07/19/2016. FINDINGS: No pneumothorax. There is mild diffuse interstitial thickening and mild cardiomegaly which remains unchanged. Small bilateral pleural effusions. There are low lung volumes. IMPRESSION: Diffuse interstitial thickening, mild cardiomegaly, and small bilateral pleural effusions. This likely represents mild pulmonary edema. Electronically signed by: Cleve Weinstein M.D. 07/21/2016 9:47 AM
--- NOTE | 2016-07-21 10:41 | Clinical Documentation Query ---
CLINICAL DOCUMENTATION QUERY 80 year old male who presents to the Emergency Room with complaints dizziness and AMS. Query #1/2 In your clinical opinion is this patient being managed for: ( x) possible mild Sepsis in setting of Influenza A+ and Metabolic encephalopathy upon admission ( ) Other explanation of clinical findings (Please Explain) ( ) Unable to determine (Please Define) ( ) Need to Discuss ( ) Not Agree The medical record reflects the following clinical findings, treatment, and risk factors. Clinical Indicators: AMS, Lactic acidosis (2.41), +nasal swabs for influenza A, low grade fever 37.7, hypotension 98/56, and hypoxia 88% on RA. Treatment: IV Daptomycin, IVF bolus, IV Zosyn, Motrin, Tamiflu, Flu Swab, Risk Factors: Age and underlying influenza Query #2/2 H&P and early progress notes stated Metabolic encephalopathy. This diagnosis has recently fallen off the record. In your clinical opinion is this patient being managed for: ( x ) possible mild Metabolic encephalopathy upon admission. IF SO please continue to include in documentation. ( ) Not agree IF IN AGREEMENT, YOU MUST DOCUMENT ABOVE DIAGNOSTIC STATEMENT IN DAILY PROGRESS NOTES AND DISCHARGE SUMMARY. This document is not part of the patient's record. Please clarify and document your clinical opinion in the progress notes and discharge summary. Terms such as "probable", "suspected", "likely", "questionable", "possible", or "still to be ruled out" are acceptable. Thank You, Rodolfo Batista, RN [phone]
--- NOTE | 2016-07-21 11:44 | DIAGNOSTIC IMAGING REPORT ---
NUCLEAR MEDICINE VENTILATION/PERFUSION SCAN HISTORY: Short of breath. Hypoxia. TECHNIQUE: 29 mCi of technetium 99 M DTPA was inhaled for the ventilation scan and 5.6 mCi of technetium 99 M MAA was intravenously injected for the perfusion scan. Anterior, posterior, oblique, and lateral views of the chest were performed immediately following radiotracer for both the ventilation and perfusion scan. COMPARISON STUDY: Chest 07/21/2016. FINDINGS: No mismatched or segmental defects identified. There is blunting of the costophrenic sulci and mild enlargement of cardiac silhouette. IMPRESSION: Above findings are consistent with a very low probability scan. Electronically signed by: Cleve Weinstein M.D. 07/21/2016 11:42 AM
[2016-07-21] MEDS: ALBUT/IPRATROP 3MG/0.5MG NEB 3 ML VIAL INH SCH ×3 (12:03→19:35)
--- NOTE | 2016-07-21 17:01 | ECHOCARDIOGRAM REPORT ---
*NOTICE TO RECEIVING [employer] This information is strictly Confidential and protected under [place] law. [place] law prohibits you from making any further disclosure of this information unless further disclosure is expressly permitted by the written consent of the person to whom it pertains or is authorized by law. A general authorization for the release of medical or other information is not sufficient for this purpose. Hospital accepts no responsibility if the information is made available to any other person, INCLUDING THE PATIENT. Interpretation Summary * Name: LOU DASILVA Study Date: 07/20/2016 04:32 PM BP: 92/51 mmHg * Patient Location: [facility] HR: 90 * : 1935 (M/d/yyyy) Gender: Male Height: 62 in * Age: 80 yrs Ethnicity: [place] Weight: 169 lb * Ordering Physician: Shanti Villanueva * Referring Physician: Self, Referred * Performed By: Wendie Knight RDCS * * Reason For Study: Edema, Flu * BSA: 1.8 m2 * -- Conclusions -- * 1. Normal LV size. Mild concentric LVH with sigmoid septum. Mild left atrial enlargement. * 2. Normal LV systolic function. LVEF 60-65%. No regional wall motion abnormalities. * 3. Normal RV size and function. * 4. No significant valvular abnormalities. * 5. Grade I diastolic dysfunction. * 6. No prior studies for comparison. Procedure Details * A complete two-dimensional transthoracic echocardiogram was performed (2D, M-mode, Doppler and color flow Doppler). * The study was technically difficult. * Attempted to reach 2 floats to administer Definity. Floats unavailable due to heart alert. Patient made aware that if Definity is desired, it will be done tomorrow. Left Ventricle * The left ventricle is grossly normal size. * There is mild concentric left ventricular hypertrophy. * The basal septum is thickened and angulated consistent with sigmoid septum. * Ejection Fraction = 60-65%. * No regional wall motion abnormalities noted. Right Ventricle * The right ventricle is grossly normal size. * The right ventricular systolic function is normal as assessed by tricuspid annular plane systolic excursion (TAPSE) (normal >1.5 cm). Atria * The left atrium is mildly dilated. * Right atrial size is normal. Mitral Valve * The mitral valve is grossly normal. * There is mild mitral annular calcification. * There is no mitral valve stenosis. * There is trace mitral regurgitation. Tricuspid Valve * The tricuspid valve is not well visualized, but is grossly normal. * There is no tricuspid stenosis. * There is trace tricuspid regurgitation. Aortic Valve * The aortic valve opens well. * The aortic valve is trileaflet. * No hemodynamically significant valvular aortic stenosis. * There is no significant aortic regurgitation. Pulmonic Valve * The pulmonary valve is inadequately visualized, but the Doppler data is adequate for interpretation. * Pulmonic stenosis is absent. * There is no pulmonic valvular regurgitation. Great Vessels * The aortic root and proximal ascending aorta are normal sized. Pericardium/Pleural * There is no pericardial effusion. Great Vessels * There is no evidence of pulmonary hypertension. The PA systolic pressure is less than 36 mmHg. Left Ventricular Diastolic Function * Grade I diastolic dysfunction, (abnormal relaxation pattern). MMode 2D Measurements and Calculations IVSd 1.1 cm IVSs 1.4 cm LVIDd 4.8 cm LVIDs 3.3 cm LVPWd 1.2 cm LVPWs 0.87 cm IVS/LVPW 0.95 FS 32.3 % EDV(Teich) 108.5 ml ESV(Teich) 42.8 ml EF(Teich) 60.5 % EDV(cubed) 111.9 ml ESV(cubed) 34.6 ml EF(cubed) 69.0 % % IVS thick 28.5 % % LVPW thick -26.46 % LV mass(C)d 208.9 grams LV mass(C)dI 117.4 grams/m\S\2 LV mass(C)s 116.1 grams LV mass(C)sI 65.3 grams/m\S\2 SV(Teich) 65.6 ml SI(Teich) 36.9 ml/m\S\2 SV(cubed) 77.2 ml SI(cubed) 43.4 ml/m\S\2 Ao root diam 2.9 cm Ao root area 6.5 cm\S\2 ACS 1.9 cm LA dimension 4.2 cm LA/Ao 1.5 LVAd ap4 27.3 cm\S\2 LVLd ap4 8.1 cm EDV(MOD-sp4) 79.0 ml EDV(sp4-el) 77.8 ml LVAs ap4 15.8 cm\S\2 LVLs ap4 7.2 cm ESV(MOD-sp4) 31.1 ml ESV(sp4-el) 29.6 ml EF(MOD-sp4) 60.6 % EF(sp4-el) 61.9 % LVAd ap2 25.8 cm\S\2 LVLd ap2 8.0 cm EDV(MOD-sp2) 75.9 ml EDV(sp2-el) 70.5 ml LVAs ap2 13.2 cm\S\2 LVLs ap2 6.6 cm ESV(MOD-sp2) 24.8 ml ESV(sp2-el) 22.3 ml EF(MOD-sp2) 67.3 % EF(sp2-el) 68.3 % LVLd %diff -1.38 % EDV(MOD-bp) 77.5 ml LVLs %diff -8.63 % ESV(MOD-bp) 28.7 ml EF(MOD-bp) 63.0 % SV(MOD-sp4) 47.9 ml SI(MOD-sp4) 26.9 ml/m\S\2 SV(MOD-sp2) 51.1 ml SI(MOD-sp2) 28.7 ml/m\S\2 SV(MOD-bp) 48.8 ml SI(MOD-bp) 27.4 ml/m\S\2 SV(sp4-el) 48.2 ml SI(sp4-el) 27.1 ml/m\S\2 SV(sp2-el) 48.1 ml SI(sp2-el) 27.1 ml/m\S\2 Doppler Measurements and Calculations MV E max sebastián 103.0 cm/sec MV A max sebastián 106.9 cm/sec MV E/A 0.96 MV dec time 0.19 sec Ao V2 max 139.6 cm/sec Ao max PG 7.8 mmHg Ao max PG (full) 3.2 mmHg LV V1 max PG 4.6 mmHg LV V1 max 106.7 cm/sec PA V2 max 118.4 cm/sec PA max PG 5.6 mmHg TR max sebastián 236.3 cm/sec
[2016-07-22] VITALS (7 sets, daily range): BP systolic 101–112; BP diastolic 60–73; PULSE 60–68; TEMP 36.4–36.5; O2SAT 91–96
[2016-07-22 06:15] LABS: HEMATOCRIT 26.5 % (42-52); MEAN CELL VOLUME 103.1 fL (80-100); MEAN CORPUSCULAR HGB CONC 35.8 g/dl (32-36); RED BLOOD COUNT 2.57 M/uL (4.7-6.1); WHITE BLOOD COUNT 5.31 K/uL (4.8-10.8)
[2016-07-22 06:16] LABS: BASO % 1.5 %; BASO ABS # 0.08 K/uL (0-0.2); COMPLETE YES; EOS % 9.2 %; IG% 0.2 %; LYMPH % 29.8 %; LYMPH ABS # 1.58 K/uL (1.2-3.4); MEAN PLATELET VOLUME 10.2 fL (7.4-10.4); MONO % 14.9 %; NEUT % 44.4 %; PLATELET COUNT 78 K/uL (130-400)
[2016-07-22 06:22] LABS: URINE PROTIEN/CREAT RATIO 0.1 (0-0.2); URINE TOTAL PROTEIN 8.7 mg/dl (0-11.9)
[2016-07-22 06:38] LABS: ESTIMATED AVERAGE GLUCOSE 103 mg/dl; HA1C FLAG Normal (Normal)
[2016-07-22 06:51] LABS: BUN/CREATININE RATIO 12.6 (10-20); CALCIUM 8.2 mg/dl (8.5-10.1); CREATININE 1.4 mg/dl (0.60-1.40); POTASSIUM 4.1 mmol/L (3.5-5.1)
[2016-07-22] MEDS: ALBUT/IPRATROP 3MG/0.5MG NEB 3 ML VIAL INH SCH ×4 (07:20→20:00)
[2016-07-22] MEDS: PROPRANOLOL HCL 20 MG TAB PO SCH ×2 (08:10→21:30)
[2016-07-22] MEDS: RIFAXIMIN TAB 550 MG TAB PO SCH ×2 (08:10→21:29)
[2016-07-22] MEDS: SITAGLIPTIN 100 MG TAB PO SCH (08:11)
[2016-07-22] MEDS: PANTOprazole SOD 40 MG TAB PO SCH (08:11)
[2016-07-22] MEDS: SPIRONOLACTONE 100 MG TAB PO SCH (08:11)
[2016-07-22] MEDS: FUROSEMIDE 40 MG TAB PO SCH (08:12)
[2016-07-22] MEDS: LACTULOSE SYRUP 10 GM/15 ML BTL 473 ML PO SCH (08:12)
[2016-07-22] MEDS: THIAMINE HCL 100 MG TAB PO SCH (08:12)
[2016-07-22] MEDS ORDERED: OSELTAMIVIR PHOSPHATE SUSP 30 MG/5 ML UDP PO ONE (08:45)
--- NOTE | 2016-07-22 09:57 | Progress Note ---
Subjective Date of Service: Jul 22, 2016. Subjective Pt evaluation today including: conversation w/ patient, conversation w/ family , physical exam, chart review, lab review, review of studies, review of inpatient medication list Voiding: no voiding problems Sitting up to the chair, pleasant, conversational, some dry cough, denied uncomfortable Problem List Medical Problems: (1) Altered mental status Status: Acute (2) Influenza A Status: Acute Review of Systems Constitutional: + fatigue, + weakness, No chills, No fever, No problem reported , No sweats, No weight loss Eyes: No diplopia, No discharge, No eye pain, No redness, No worsening of vision ENT: No dental problems, No hearing loss, No nasal symptoms, No sore throat, No tinnitus, No trouble swallowing, No unusual epistaxis Respiratory: + cough, No dyspnea at rest, No dyspnea on exertion, No hemoptysis , No shortness of breath, No sputum, No wheezing Cardiac: No PND, No chest pain, No claudication, No edema, No orthopnea, No palpitations Abdomen: No constipation, No diarrhea, No nausea, No pain, No vomiting Musculoskeletal: No calf pain, No joint pain, No muscle pain, No swelling Male : No dysuria, No hematuria, No incontinence, No nocturia more than once/ night, No slowing stream, No urinary frequency Neurologic: No balance problems, No memory loss, No numbness/tingling, No paralysis, No vertigo, No weakness Psychiatric: No anhedonism, No anxiety, No depression symptoms, No insomnia, No substance abuse Heme: No abnormal bleeding/bruising, No clotting problems, No night sweats, No swollen lymph nodes Endo: No excessive thirst, No excessive urination, No fatigue Skin: No bleeding, No color change, No itch, No new/changing skin lesions, No rash Objective Vital Signs Date Time Temp Pulse Resp B/P Pulse Ox O2 Delivery O2 Flow Rate FiO2 07/22/16 07:31 36.5 68 16 101/60 96 Room Air 07/22/16 07:20 65 16 93 Room Air 07/22/16 06:11 20 91 Room Air 07/22/16 00:00 Room Air 07/21/16 19:35 68 16 91 Room Air 07/21/16 16:27 36.5 67 18 111/63 95 Room Air 07/21/16 15:40 Room Air 07/21/16 15:22 63 16 93 Room Air 07/21/16 12:07 60 16 95 Room Air 07/21/16 11:10 95 Room Air Physical Exam General Appearance: WD/WN, no apparent distress, + pertinent finding (look little bit older than his age) Eyes: normal inspection, PERRL, EOMI, sclerae normal ENT: normal ENT inspection, hearing grossly normal, pharynx normal Neck: supple, no adenopathy, thyroid normal, no JVD, no carotid bruits, trachea midline Respiratory/Chest: chest non-tender, normal breath sounds, no respiratory distress, no accessory muscle use, + decreased breath sounds, + wheezing (mild) Cardiovascular: regular rate, rhythm, no edema, no gallop, no JVD, no murmur Abdomen: normal bowel sounds, non tender, soft, no organomegaly, no pulsatile mass Extremities: normal range of motion, non-tender, normal inspection, no pedal edema, no calf tenderness, normal capillary refill, pelvis stable 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, no motor/sensory deficits, alert, normal mood/affect, oriented x 3 Skin: normal color, warm/dry, no rash Lymphatic: no adenopathy Laboratory Results Last 24 Hours Test 07/22/16 05:25 07/22/16 05:42 White Blood Count 5.31 K/uL Red Blood Count 2.57 M/uL Hemoglobin 9.5 g/dL Hematocrit 26.5 % Mean Corpuscular Volume 103.1 fL Mean Corpuscular Hemoglobin 37.0 pg Mean Corpuscular Hemoglobin Concent 35.8 g/dl Platelet Count 78 K/uL Mean Platelet Volume 10.2 fL Neutrophils (%) (Auto) 44.4 % Lymphocytes (%) (Auto) 29.8 % Monocytes (%) (Auto) 14.9 % Eosinophils (%) (Auto) 9.2 % Basophils (%) (Auto) 1.5 % Neutrophils # (Auto) 2.36 K/uL Lymphocytes # (Auto) 1.58 K/uL Monocytes # (Auto) 0.79 K/uL Eosinophils # (Auto) 0.49 K/uL Basophils # (Auto) 0.08 K/uL RDW Standard Deviation 62.0 fL RDW Coefficient of Variation 16.3 % Immature Granulocyte % (Auto) 0.2 % Immature Granulocyte # (Auto) 0.01 K/uL Sodium Level 141 mmol/L Potassium Level 4.1 mmol/L Chloride Level 106 mmol/L Carbon Dioxide Level 28 mmol/L Anion Gap 7.0 mmol/L Blood Urea Nitrogen 18 mg/dl Creatinine 1.40 mg/dl Est Creatinine Clear Calc Drug Dose 36.5 ml/min Estimated GFR () 53.8 Estimated GFR (Non- 46.5 BUN/Creatinine Ratio 12.6 Random Glucose 68 mg/dl Estimated Average Glucose 103 mg/dl Hemoglobin A1c 5.2 % Calcium Level 8.2 mg/dl Urine Random Creatinine 170.0 mg/dl Urine Random Total Protein 8.7 mg/dl Urine Protein/Creatinine Ratio 0.1 Assessment and Plan 80 yo male with history of cirrhosis, well compensated normally on Lactulose, Rifaximin as well as Lasix and Aldactone. Admitted on 07/19/2016 with increased bowel frequency, confusion, hypoxia, weakness - Acute influenza infection: Stable and improving Continue renal dose Tamiflu , supportive care, no fluids needed as he is eating and drinking well - Hypoxia: due to influenza, or other etiology, differential diagnoses include a pulmonary edema, CHF, or acute PE Upon admission chest x-ray was done no large infiltrates on CXR, for now patient seems not able to wean off oxygen I ordered an repeated chest x-ray, echo was done last night pending report, I'm checking TSH, Bnp, Patient is in minimal elevated troponin likely because of CK D stage III, I don' t feel he has PE for now, Now he is out of bed to the chair, pulse ox is 96% in room air I don't think we need to do VQ scan - Diarrhea: has not had any stools for sample yet so diarrhea must be improving , C diff and culture were unremarkable stools always loose with Lactulose for liver cirrhosis - 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 Del Rio and was due to be seen yesterday, and request Dr. Del Rio consultation, I agreed - Right shoulder pain: fell at home, x-ray shows no fractures, resolved - Weakness: I feel he is in high risk on the fall, continue PT OT evaluation and treatment, I recommend he need to go to ECF all rehabilitation, because he home alone I called to patient's son updated him patient's conditions, and explained what is going on, son did request to go to ECF or rehabilitation if we recommend Has reported to case management manager Looking for discharge tomorrow to chcf or home Continued [facility] stay due to: home environment unsafe for pt Discharge planning: alf facility
[2016-07-22] MEDS: OSELTAMIVIR PHOSPHATE SUSP 30 MG/5 ML UDP PO SCH (21:34)
[2016-07-23 00:42] VITALS: BP 122/64; PULSE 75; TEMP 36.5; O2SAT 92
[2016-07-23 07:13] VITALS: PULSE 71; O2SAT 94
[2016-07-23] MEDS: ALBUT/IPRATROP 3MG/0.5MG NEB 3 ML VIAL INH SCH ×2 (07:13→11:04)
[2016-07-23] MEDS: SITAGLIPTIN 100 MG TAB PO SCH (07:27)
[2016-07-23] MEDS: PROPRANOLOL HCL 20 MG TAB PO SCH ×2 (07:27→08:31)
[2016-07-23] MEDS: LACTULOSE SYRUP 10 GM/15 ML BTL 473 ML PO SCH (07:27)
[2016-07-23] MEDS: PANTOprazole SOD 40 MG TAB PO SCH (07:28)
[2016-07-23] MEDS: THIAMINE HCL 100 MG TAB PO SCH (07:28)
[2016-07-23] MEDS: SPIRONOLACTONE 100 MG TAB PO SCH (07:28)
[2016-07-23] MEDS: RIFAXIMIN TAB 550 MG TAB PO SCH (07:28)
[2016-07-23] MEDS: FUROSEMIDE 40 MG TAB PO SCH (07:29)
[2016-07-23] MEDS: OSELTAMIVIR PHOSPHATE SUSP 30 MG/5 ML UDP PO SCH (07:37)
[2016-07-23 08:15] VITALS: BP 86/50; PULSE 58; TEMP 36.6; O2SAT 93
[2016-07-23 09:06] VITALS: BP 114/67; PULSE 69
--- NOTE | 2016-07-23 09:09 | Progress Note ---
Subjective Date of Service: Jul 23, 2016. Subjective Pt evaluation today including: conversation w/ patient, physical exam, chart review, lab review, review of studies, conversation w/ device sales consultant, review of inpatient medication list Out of bed to chair, help with walker, feeling generalized weak, no other complaint, mild dry cough, eating okay Problem List Medical Problems: (1) Altered mental status Status: Acute (2) Influenza A Status: Acute Review of Systems Constitutional: + fatigue, + weakness, No chills, No fever, No problem reported , No sweats, No weight loss Eyes: No diplopia, No discharge, No eye pain, No redness, No worsening of vision ENT: No dental problems, No hearing loss, No nasal symptoms, No sore throat, No tinnitus, No trouble swallowing, No unusual epistaxis Respiratory: + cough, No dyspnea at rest, No dyspnea on exertion, No hemoptysis , No shortness of breath, No sputum, No wheezing Cardiac: No PND, No chest pain, No claudication, No edema, No orthopnea, No palpitations Abdomen: No constipation, No diarrhea, No nausea, No pain, No vomiting Musculoskeletal: No calf pain, No joint pain, No muscle pain, No swelling Male : No dysuria, No hematuria, No incontinence, No nocturia more than once/ night, No slowing stream, No urinary frequency Neurologic: No balance problems, No memory loss, No numbness/tingling, No paralysis, No vertigo, No weakness Psychiatric: No anhedonism, No anxiety, No depression symptoms, No insomnia, No substance abuse Heme: No abnormal bleeding/bruising, No clotting problems, No night sweats, No swollen lymph nodes Endo: No excessive thirst, No excessive urination, No fatigue Skin: No bleeding, No color change, No itch, No new/changing skin lesions, No rash Objective Vital Signs Date Time Temp Pulse Resp B/P Pulse Ox O2 Delivery O2 Flow Rate FiO2 07/23/16 08:15 36.6 58 14 86/50 93 Room Air 07/23/16 01:00 Room Air 07/23/16 00:42 36.5 75 18 122/64 92 Room Air 07/22/16 21:00 Room Air 07/22/16 20:00 68 18 93 Room Air 07/22/16 15:40 36.4 66 18 112/73 93 Room Air 07/22/16 15:35 64 16 91 Room Air 07/22/16 15:13 Room Air 07/22/16 11:15 60 16 94 Room Air Physical Exam General Appearance: WD/WN, no apparent distress, + obese, + pertinent finding ( frail) Eyes: normal inspection, PERRL, EOMI, sclerae normal ENT: normal ENT inspection, hearing grossly normal, pharynx normal Neck: supple, no adenopathy, thyroid normal, no JVD, no carotid bruits, trachea midline Respiratory/Chest: chest non-tender, normal breath sounds, no respiratory distress, no accessory muscle use, + decreased breath sounds Cardiovascular: regular rate, rhythm, no edema, no gallop, no JVD, no murmur Abdomen: normal bowel sounds, non tender, soft, no organomegaly, no pulsatile mass Extremities: normal range of motion, non-tender, normal inspection, no pedal edema, no calf tenderness, normal capillary refill, pelvis stable 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 Admitted on 07/19/2016 with increased bowel frequency, confusion, hypoxia, weakness - Acute influenza infection: Stable and improving Continue renal dose Tamiflu , supportive care, Continue eating and drinking well - Hypoxia: due to influenza, or other etiology, differential diagnoses include a pulmonary edema, CHF, or acute PE Upon admission chest x-ray was done no large infiltrates on CXR, for now patient seems not able to wean off oxygen I ordered an repeated chest x-ray, echo was done last night pending report, I'm checking TSH, Bnp, Patient is in minimal elevated troponin likely because of CK D stage III, I don' t feel he has PE for now, Now he is out of bed to the chair, pulse ox is 96% in room air I don't think we need to do VQ scan - Diarrhea: has not had any stools for sample yet so diarrhea must be improving , C diff and culture were unremarkable stools always loose with Lactulose for liver cirrhosis - 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 Del Rio and was due to be seen yesterday, and requested Dr. Del Rio consultation, I agreed. I heard GI service saw him already , will follow-up their input - Right shoulder pain: fell at home, x-ray shows no fractures, resolved - Weakness: I feel he is in high risk on the fall, continue PT OT evaluation and treatment, I recommend he need to go to ECF all rehabilitation, because he home alone I called to patient's son updated him patient's conditions, and explained what is going on, son did request to go to ECF or rehabilitation , per conversation with patient's son , he agrees that patient is not able to return home at this time. We talked about SNF's in [facility]. Son prefers [facility] in [place]. Patient medically ready to discharge when there is a place in rehab to go , talked to nurse to call me when bed is ready Continued [facility] stay due to: home environment unsafe for pt Discharge planning: rehab hospital, half-way facility
[2016-07-23] MEDS ORDERED: JNV100 PO (09:14)
[2016-07-23] MEDS ORDERED: TMFUDL30 PO (09:14)
[2016-07-23 11:04] VITALS: PULSE 67; O2SAT 92
--- NOTE | 2016-07-23 12:45 | Discharge Instructions ---
Discharge Instructions Admission Reason for Admission: Influenza A, Cirrhosis Discharge Discharge Diagnosis / Problem: influenza, pna Discharge Goals Goal(s): Decrease discomfort, Improve function, Increase independence, Improve disease control, Improve nutritional status, Learn about illness, Diagnostic testing, Therapeutic intervention, Prevent Disease Progression, Specific goals Activity Recommendations Activity Level: Up Ad Helen Therapies: Physical Therapy, Occupational Therapy Exercise/Sports Limitations: as tolerated . Additional Information Patient informed of condition: Yes Advance Directives: Yes DNR: No Level of Care: Acute Rehab Communicable Disease: No Prognosis: Other (very guarded) Fay Catheter: No Instructions / Follow-Up Instructions / Follow-Up you have history of cirrhosis need to follow up with Dr. Del Rio as instructed you have Acute influenza infection, need to continue renal dose Tamiflu , supportive care, you have CKD stage III/IV you need to follow up with pcp about this your diabetics medicine Millie has change to lower dose per renal functions - you need to follow up with your primary care physician in 1 week, - take medication as instructed, never overdose or any misuse, or take with alcohol, because misuse of medicine may cause organ damage or , call your primary care physician if have questions of medicaitons. - call your primary care physician OR go to local emergency room if has any fever/chill, chest pain, shortness of breathing, nausea/vomiting/abdominal pain , facial droop/slurry speech/local weakness, or if has any questions. - fall precaution - diet as instructed - you need to follow up with your subspecialist - you should understand that it is important to follow up the above instruction , and "not following the above instruction" may cause delayed or missed care of your medical conditions which may cause permanent organ damage and even . Current Hospital Diet Patient's current hospital diet: AHA Diet (Heart Healthy) Discharge Diet Recommended Diet: Diabetes Type 2 Diet Pending Studies Studies pending at discharge: no Physician Orders On Transfer POLST Discussion: without POLST completion Laboratory Results Meds Administered (Past 24Hrs) Medications (Trade) Dose Ordered Sig/Christi Route Start Time Stop Time Status Last Admin Dose Admin Oseltamivir Phosphate (Tamiflu Susp) 30 mg BID PO 07/22/16 20:00 07/27/16 07:59 07/23/16 07:37 30 MG Oseltamivir Phosphate (Tamiflu Susp) 30 mg 0845 ONCE PO 07/22/16 08:45 07/22/16 08:46 DC 07/22/16 08:55 30 MG Hemoglobin A1c Test 07/22/16 05:25 Range/Units Estimated Average Glucose 103 mg/dl Hemoglobin A1c 5.2 4.5-5.6 % Medical Emergencies . Who to Call and When: Medical Emergencies: If at any time you feel your situation is an emergency, please call 911 immediately. . Non-Emergent Contact Non-Emergency issues call your: Primary Care Provider, Hydroelectric Systems Technician . . "Provider Documentation" section prepared by Mukesh Dozier. Core Measure Problem Core Measures: None
--- NOTE | 2016-07-23 12:57 | Discharge Summary ---
Discharge Summary Admission Date: Jul 19, 2016 at 12:57 Discharge Date: Jul 23, 2016 Discharge Disposition: Acute care facility Principal Diagnosis: Acute influenza infection Problems/Secondary Diagnoses: history of cirrhosis CKD stage III/IV DMII Procedures: no Consultations: gi Medication Reconciliation New Medications: Oseltamivir Phosphate (Tamiflu) 6 Mg/Ml Salima 30 MG PO BID for 3 Days Sitagliptin (Januvia) 100 Mg Tab 50 MG PO DAILY for 30 Days, TAB Continued Medications: Docusate Sodium (Colace) 100 Mg Cap 1 CAP PO DAILY for 30 Days, #30 CAP Folic Acid (Folvite) 1 Mg Tab 1 MG PO DAILY, TAB Furosemide (Lasix) 20 Mg Tab 20 MG PO DIRECTED, TAB Lactulose (Chronulac) 10 Gm/15 Ml Syrp 15 ML PO DAILY Multivitamin (Multivitamin) Tab 1 TAB PO DAILY, TAB Omeprazole (Prilosec) 20 Mg Capcr 20 MG PO DAILY, CAP Propranolol HCl (Propranolol HCl) 20 Mg Tab 20 MG PO BID for 30 Days, TAB Rifaximin (Xifaxan) 550 Mg Tab 550 MG PO BID for 30 Days, TAB Spironolactone (Spironolactone) 100 Mg Tab 100 MG PO QAM for 30 Days, TAB Thiamine Hcl (Vitamin B-1) 100 Mg Tab 100 MG PO DAILY, TAB Discontinued Medications: Sitagliptin Phosphate (Januvia) 100 Mg Tab 100 MG PO DAILY, TAB Discharge Exam See today's progress note Review of Systems: Constitutional: + problem reported (see today's progress note) Physical Exam: General Appearance: + pertinent finding (PC today's progress note) Hospital Course 80 yo male with history of cirrhosis, well compensated normally on Lactulose, Rifaximin as well as Lasix and Aldactone. Admitted on 07/19/2016 with increased bowel frequency, confusion, hypoxia, weakness - Acute influenza infection: Stable and improving Continue renal dose Tamiflu , supportive care, Continue eating and drinking well - Hypoxia: due to influenza, or other etiology, differential diagnoses include a pulmonary edema, CHF, or acute PE Upon admission chest x-ray was done no large infiltrates on CXR, for now patient seems not able to wean off oxygen I ordered an repeated chest x-ray, echo was done last night pending report, I'm checking TSH, Bnp, Patient is in minimal elevated troponin likely because of CK D stage III, I don' t feel he has PE for now, Now he is out of bed to the chair, pulse ox is 96% in room air I don't think we need to do VQ scan - Diarrhea: has not had any stools for sample yet so diarrhea must be improving , C diff and culture were unremarkable stools always loose with Lactulose for liver cirrhosis - 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 Del Rio and was due to be seen yesterday, and requested Dr. Del Rio consultation, I agreed. I heard GI service saw him already , will follow-up their input - Right shoulder pain: fell at home, x-ray shows no fractures, resolved - Weakness: I feel he is in high risk on the fall, continue PT OT evaluation and treatment, I recommend he need to go to ECF all rehabilitation, because he home alone I called to patient's son updated him patient's conditions, and explained what is going on, son did request to go to ECF or rehabilitation , per conversation with patient's son , he agrees that patient is not able to return home at this time. We talked about SNF's in [facility]. Son prefers [facility] in [place]. Patient medically ready to discharge when there is a place in rehab to go , talked to nurse to call me when bed is ready Instructions / Follow-Up you have history of cirrhosis need to follow up with Dr. 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 - call your primary care physician OR go to local emergency room if has any fever/chill, chest pain, shortness of breathing, nausea/vomiting/abdominal pain , facial droop/slurry speech/local weakness, or if has any questions. - fall precaution - diet as instructed - you need to follow up with your subspecialist - you should understand that it is important to follow up the above instruction , and "not following the above instruction" may cause delayed or missed care of your medical conditions which may cause permanent organ damage and even . Total Time Spent: Greater than 30 minutes This includes examination of the patient, discharge planning, medication reconciliation, and communication with other providers. Discharge Instructions Please refer to the electronic Patient Visit Report (Discharge Instructions) for additional information. Additional Copies To Edinson Guevara D.O.
[2016-07-23 14:10] VITALS: BP 114/67; PULSE 67; TEMP 36.6; O2SAT 92
--- NOTE | 2016-07-29 09:32 | Gastrointestinal Consultation ---
Gastrointestinal Consultation History of Present Illness Patient is a 80 year old male Past Medical/Surgical History Medical Problems: (1) Altered mental status Status: Acute (2) Influenza A Status: Acute Family History No pertinent family history Social History Smoking Status: Unknown if Ever Smoked Alcohol Use: heavy Drug Use: none Housing Status: lives with family Occupation Status: retired Allergies Coded Allergies: No Known Allergies (Unverified , 07/19/16) Current Medications Home Meds and Scripts Medications Dose Route/Sig Max Daily Dose Days Date Category Januvia (Sitagliptin) 100 Mg Tab 50 Mg PO DAILY 30 07/23/16 Rx Tamiflu (Oseltamivir Phosphate) 6 Mg/Ml Salima 30 Mg PO BID 3 07/23/16 Rx Multivitamin (Multivitamins) Tab 1 Tab PO DAILY 07/19/16 Reported Lasix (Furosemide) 20 Mg Tab 20 Mg PO DIRECTED 07/19/16 Reported Colace (Docusate Sodium) 100 Mg Cap 1 Cap PO DAILY 30 07/19/16 Reported Vitamin B-1 (Thiamine HCl) 100 Mg Tab 100 Mg PO DAILY 07/19/16 Reported Chronulac (Lactulose) 10 Gm/15 Ml Syrp 15 Ml PO DAILY 07/19/16 Reported Prilosec (Omeprazole) 20 Mg Capcr 20 Mg PO DAILY 07/19/16 Reported Folvite (Folic Acid) 1 Mg Tab 1 Mg PO DAILY 07/19/16 Reported Spironolactone 100 Mg Tab 100 Mg PO QAM 30 09/15/14 Rx Propranolol HCl 20 Mg Tab 20 Mg PO BID 30 09/15/14 Rx Xifaxan (Rifaximin) 550 Mg Tab 550 Mg PO BID 30 09/15/14 Rx Impression Patient is a 80 year old male Plan Patient discharged prior to my evaluation.
== END 2016-07-23 16:29 | DRG 871 ==
LOC: ENRESERVDT → ENRESERVTM → C.EDB 09:37 → C.4E 12:57 → UNDOADMIN 12:57
PROVIDERS: ADMIT Internal Medicine; ATTEND Hospitalist
DX: A41.9 Sepsis, unspecified organism (principal); G93.41 Metabolic encephalopathy; N18.4 Chronic kidney disease, stage 4 (severe); E87.2 Acidosis; I13.0 Hypertensive heart and chronic kidney disease with heart failure and stage 1 through stage 4 chronic kidney disease, or unspecified chronic kidney disease; J09.X2 Influenza due to identified novel influenza A virus with other respiratory manifestations; K72.90 Hepatic failure, unspecified without coma; K74.60 Unspecified cirrhosis of liver; F03.90 Unspecified dementia, unspecified severity, without behavioral disturbance, psychotic disturbance, mood disturbance, and anxiety; R53.1 Weakness; R09.02 Hypoxemia; R32 Unspecified urinary incontinence; R15.9 Full incontinence of feces; E03.9 Hypothyroidism, unspecified; I50.9 Heart failure, unspecified; R19.7 Diarrhea, unspecified; E11.22 Type 2 diabetes mellitus with diabetic chronic kidney disease; R79.89 Other specified abnormal findings of blood chemistry; R60.0 Localized edema; M25.511 Pain in right shoulder; W19.XXXA Unspecified fall, initial encounter; Y92.009 Unspecified place in unspecified non-institutional (private) residence as the place of occurrence of the external cause; Z87.891 Personal history of nicotine dependence; Z79.899 Other long term (current) drug therapy; Z79.84 Long term (current) use of oral hypoglycemic drugs

== ENCOUNTER 2016-08-31 09:04 | Inpatient (IN) | payer OTHER, MEDICARE ==
[~2016-08-31] VITALS: Ht 165.1 cm; Wt 72.7 kg
[~2016-08-31 09:04] MED LIST changes: +DOCU-94 PO; +FOLI1TAB7 PO; +FURO-85 PO; +JNV100 PO; +LACT10SO17 PO; -LCTL45 PO; -LEVO-459 PO; -LSX20 PO; +MULT-506 PO; +PRLSR20 PO; -PRT40 PO; +THIA100T11 PO; +TMFUDL30 PO
--- NOTE | 2016-08-31 09:43 | EMERGENCY ROOM VISIT NOTE ---
History Report prepared by Polly: Mariama Stoner Under the Supervision of: Dr. Kendall Munoz M.D. First contact with patient: 09:35 Chief Complaint: WEAKNESS Stated Complaint: DISORIENTED,EXTREMELY WEAK,LOSS OF BODILY FUCTION Nursing Triage Summary: pt arrived with son , who noted yesterday increased confusion with freq falls over last several days refusing to use walker son notes hx of hepatic cirrhosis History of Present Illness The patient is an 81 year old male who presents to the Emergency Room with complaints of worsening weakness for the past 2 to 3 days. He is accompanied by his son. His son reports he has been increasingly confused and has become incontinent of his bladder. Yesterday he tried to urinate on his deck as he thought he was in a bathroom. He has also been falling more frequently and refuses to use his walker to ambulate. The patient has a history of cirrhosis of the liver. His son notes he has not been eating or drinking well and states his legs and abdomen have become more swollen recently. He reports "we cannot get him to drink water". The patient experienced the flu over New Years and was then released to [facility] for 2 weeks for therapy. He got back home on August 01, 2016. His son states "we are almost as bad as he was then", referring to when the patient was at [facility]. His son denies any recent fevers, chills or coughing. 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 Please see Additional Medical History Sheet. Past Medical & Surgical Medical Problems: (1) Influenza A, cirrhosis Family History No pertinent family history Social History Smoking Status: Former Smoker Alcohol Use: heavy Drug Use: none Marital Status: Housing Status: lives with family Occupation Status: retired Current/Historical Medications Scheduled Docusate Sodium (Colace), 1 CAP PO DAILY Folic Acid (Folvite), 1 MG PO DAILY Furosemide (Lasix), 20 MG PO DIRECTED Lactulose (Chronulac), 15 ML PO DAILY Multivitamin (Multivitamin), 1 TAB PO DAILY Omeprazole (Prilosec), 20 MG PO DAILY Propranolol HCl (Propranolol HCl), 20 MG PO BID Rifaximin (Xifaxan), 550 MG PO BID Sitagliptin (Januvia), 50 MG PO DAILY Spironolactone (Spironolactone), 100 MG PO QAM Thiamine Hcl (Vitamin B-1), 100 MG PO DAILY Allergies Coded Allergies: No Known Allergies (Unverified , 07/19/16) Physical Exam Vital Signs Date Time Temp Pulse Resp B/P Pulse Ox O2 Delivery O2 Flow Rate FiO2 08/31/16 13:30 Room Air 08/31/16 11:34 57 100/46 98 Room Air 08/31/16 10:42 60 98/45 97 Room Air 08/31/16 09:51 98 08/31/16 09:24 59 08/31/16 09:05 37.0 66 18 106/52 98 Room Air Physical Exam GENERAL: Patient awake and alert. Disoriented to time and person. Patient follows commands. Patient does not appear toxic. SKIN: No erythema, pallor, cyanosis or rash HEENT: Normal head, pupils equal, reactive to light and accommodation. Patient has a scab on the right ear. Oral cavity and posterior pharynx appear normal. Mucous membranes appear dry. Neck: Without adenopathy, no neck vein distention. LUNGS: Clear to auscultation. No wheezes, no rales, no rhonchi. HEART: No murmurs. No gallops. No rubs ABDOMEN: Abdomen is slightly distended, but nontender. No masses, no rebound, no hepatomegaly or splenomegaly. EXTREMITIES: No signs of trauma. +1 pretibial edema. No calf or thigh tenderness. NEUROLOGIC: Cranial nerves II-XII within normal limits. No gross motor sensory function deficits. Medical Decision & Procedures ER Provider Diagnostic Interpretation: This X-Ray was reviewed and interpreted by myself and the radiologist. CHEST ONE VIEW PORTABLE IMPRESSION: 1. Pulmonary vascular congestion without overt pulmonary edema. 2. Suspected trace left pleural effusion. Electronically signed by: Jamari Logan M.D. 08/31/2016 10:[address] scan was reviewed and interpreted by the radiologist and reviewed by myself. CT OF THE HEAD WITHOUT CONTRAST IMPRESSION: 1. 1 cm hyperdense focus within the right cerebellar hemisphere with mild adjacent edema. A small hematoma is favored. However, a hemorrhagic lesion or less likely calcified lesion could appear similar. A follow-up head CT in 12 to 24 hours is recommended. 2. Extensive white matter hypodensities which suggest small vessel disease. Electronically signed by: Jamari Logan M.D. 08/31/2016 10:45 AM Laboratory Results 08/31/16 10:00 Red Blood Count 3.21, Mean Corpuscular Volume 101.6, Mean Corpuscular Hemoglobin 36.8, Mean Corpuscular Hemoglobin Concent 36.2, Mean Platelet Volume 10.7, Neutrophils (%) (Auto) 64.2, Lymphocytes (%) (Auto) 21.2, Monocytes (%) ( Auto) 9.7, Eosinophils (%) (Auto) 4.1, Basophils (%) (Auto) 0.7, Neutrophils # ( Auto) 6.19, Lymphocytes # (Auto) 2.05, Monocytes # (Auto) 0.94, Eosinophils # ( Auto) 0.40, Basophils # (Auto) 0.07 08/31/16 10:00 08/31/16 11:15 Test 08/31/16 10:00 08/31/16 11:15 08/31/16 12:20 White Blood Count 9.66 K/uL (4.8-10.8) Red Blood Count 3.21 M/uL (4.7-6.1) Hemoglobin 11.8 g/dL (14.0-18.0) Hematocrit 32.6 % (42-52) Mean Corpuscular Volume 101.6 fL (80-100) Mean Corpuscular Hemoglobin 36.8 pg (25-34) Mean Corpuscular Hemoglobin Concent 36.2 g/dl (32-36) Platelet Count 116 K/uL (130-400) Mean Platelet Volume 10.7 fL (7.4-10.4) Neutrophils (%) (Auto) 64.2 % Lymphocytes (%) (Auto) 21.2 % Monocytes (%) (Auto) 9.7 % Eosinophils (%) (Auto) 4.1 % Basophils (%) (Auto) 0.7 % Neutrophils # (Auto) 6.19 K/uL (1.4-6.5) Lymphocytes # (Auto) 2.05 K/uL (1.2-3.4) Monocytes # (Auto) 0.94 K/uL (0.11-0.59) Eosinophils # (Auto) 0.40 K/uL (0-0.5) Basophils # (Auto) 0.07 K/uL (0-0.2) RDW Standard Deviation 59.5 fL (36.4-46.3) RDW Coefficient of Variation 16.0 % (11.5-14.5) Immature Granulocyte % (Auto) 0.1 % Immature Granulocyte # (Auto) 0.01 K/uL (0.00-0.02) Prothrombin Time 14.5 SECONDS (9.0-12.0) Prothromb Time International Ratio 1.3 (0.9-1.1) Activated Partial Thromboplast Time 30.6 SECONDS (21.0-31.0) Partial Thromboplastin Ratio 1.2 Urine Color YELLOW Urine Appearance CLEAR (CLEAR) Urine pH 5.5 (4.5-7.5) Urine Specific [place] 1.020 (1.000-1.030) Urine Protein NEG (NEG) Urine Glucose (UA) NEG (NEG) Urine Ketones NEG (NEG) Urine Occult Blood NEG (NEG) Urine Nitrite NEG (NEG) Urine Bilirubin NEG (NEG) Urine Urobilinogen NEG (NEG) Urine Leukocyte Esterase NEG (NEG) Est Creatinine Clear Calc Drug Dose 30.4 ml/min Estimated GFR () 45.5 Estimated GFR (Non- 39.3 BUN/Creatinine Ratio 13.4 (10-20) Calcium Level 9.3 mg/dl (8.5-10.1) Total Bilirubin 2.3 mg/dl (0.2-1) Alanine Aminotransferase (ALT/SGPT) 31 U/L (12-78) Alkaline Phosphatase 167 U/L (45-117) Ammonia 60.0 umol/L (11-32) Total Protein 6.6 gm/dl (6.4-8.2) Albumin 2.2 gm/dl (3.4-5.0) Globulin 4.4 gm/dl (2.5-4.0) Albumin/Globulin Ratio 0.5 (0.9-2) Aspartate Amino Transf (AST/SGOT) U/L (15-37) Bedside Hemoglobin 11.2 g/dl (14.0-18.0) Bedside Hematocrit 33 % (42-52) Bedside Sodium 138 mEq/L (135-144) Bedside Potassium 4.3 mEq/L (3.3-5.0) Bedside Chloride 105 mEq/L (101-112) Bedside Total CO2 23 mEq/l (24-31) Anion Gap 15.0 mmol/L (16-25) Bedside Blood Urea Nitrogen 23 mg/dl (7-18) Bedside Creatinine 1.3 mg/dl (0.6-1.3) Bedside Glucose (other) 104 mg/dl (70-99) Bedside Ionized Calcium (Spenser) 1.06 mmol/l (1.12-1.32) Laboratory results as stated above per my review. Medications Administered Medications (Trade) Dose Ordered Sig/Christi Route Start Time Stop Time Status Last Admin Dose Admin Sodium Chloride (Nss 1000ml) 1,000 ml @ 300 mls/hr Q3H20M STAT IV 08/31/16 11:28 08/31/16 14:47 DC 08/31/16 11:28 300 MLS/HR ECG Indication: altered mental status Rate (beats per minute): 58 Rhythm: sinus bradycardia Findings: PVC (occasional PVC), no ectopy ED Course 09: Past medical records reviewed. The patient was evaluated in room A11B. A complete history and physical examination was performed. 1127: I discussed the patients case with Dr. Storm [facility]. The patient will be further evaluated. Medical Decision The differential diagnoses considered include: dehydration, CVA/TIA, hepatic encephalopathy, metabolic abnormality and infection. Multiple labs, EKG and imaging were obtained. Please see above. The patient's ammonia level is significantly elevated. Patient also has a small hematoma in the cerebellum which is most likely not acute. I believe his symptoms are most likely related to his hepatic encephalopathy. He has had similar symptoms in the past. I discussed care with the hospitalist marisel Menjivar a family member Consults Time Called: 1121 Consulting Physician: Dr. Storm [facility] Returned Call: 1127 I discussed the patients case with Dr. Storm [facility]. The patient will be further evaluated. Impression Primary Impression: Hepatic encephalopathy Additional Impression: Focal hematoma of cerebellum Scribe Attestation The scribe's documentation has been prepared under my direction and personally reviewed by me in its entirety. I confirm that the note above accurately reflects all work, treatment, procedures, and medical decision making performed by me. Departure Information Dispostion Being Evaluated By Hospitalist Referrals Edinson Guevara D.O. (PCP) Patient Instructions My [facility] Problem Qualifiers
[2016-08-31 10:16] LABS: BASO % 0.7 %; BASO ABS # 0.07 K/uL (0-0.2); COMPLETE YES; EOS % 4.1 %; HEMATOCRIT 32.6 % (42-52); IG% 0.1 %; LYMPH % 21.2 %; LYMPH ABS # 2.05 K/uL (1.2-3.4); MANUAL MICROSCOPIC REQUIRED? NO; MEAN CELL VOLUME 101.6 fL (80-100); MEAN CORPUSCULAR HEMOGLOBIN 36.8 pg (25-34); MEAN CORPUSCULAR HGB CONC 36.2 g/dl (32-36); MEAN PLATELET VOLUME 10.7 fL (7.4-10.4); MONO % 9.7 %; NEUT % 64.2 %; PLATELET COUNT 116 K/uL (130-400); RED BLOOD COUNT 3.21 M/uL (4.7-6.1); URINE APPEARANCE CLEAR (CLEAR); URINE BILIRUBIN NEG (NEG); URINE COLOR YELLOW; URINE NITRITE NEG (NEG); URINE PH 5.5 (4.5-7.5); UROBILINOGEN NEG (NEG); WHITE BLOOD COUNT 9.66 K/uL (4.8-10.8)
[2016-08-31 10:20] LABS: REVIEW REQ? NO
--- NOTE | 2016-08-31 10:35 | DIAGNOSTIC IMAGING REPORT ---
CHEST ONE VIEW PORTABLE CLINICAL HISTORY: Weakness. COMPARISON STUDY: Chest radiograph July 21, 2016. FINDINGS: Lung volumes are diminished. This is unchanged. Mild cardiomegaly is unchanged. There is no pneumothorax. There is a suspected trace left pleural effusion. No consolidation is identified to suggest pneumonia. There is no radiographic evidence of pulmonary edema. There is pulmonary vascular congestion. IMPRESSION: 1. Pulmonary vascular congestion without overt pulmonary edema. 2. Suspected trace left pleural effusion. Electronically signed by: Jamari Logan M.D. 08/31/2016 10:33 AM Dictated Date/Time: 08/31/2016 10:32 AM
[2016-08-31 10:39] LABS: ALB/GLOB RATIO 0.5 (0.9-2); ALKALINE PHOSPHATASE 167 U/L (45-117); ALT/SGPT 31 U/L (12-78); BLOOD UREA NITROGEN 21 mg/dl (7-18); BUN/CREATININE RATIO 13.4 (10-20); CALCIUM 9.3 mg/dl (8.5-10.1); CARBON DIOXIDE 23 mmol/L (21-32); CHLORIDE 105 mmol/L (98-107); GLUCOSE 110 mg/dl (70-99); SODIUM 138 mmol/L (136-145)
--- NOTE | 2016-08-31 10:46 | DIAGNOSTIC IMAGING REPORT ---
CT OF THE HEAD WITHOUT CONTRAST CLINICAL HISTORY: Altered mental status. COMPARISON STUDY: No previous studies for comparison. CT DOSE: 537.48 mGy.cm TECHNIQUE: Helical axial images of the head were obtained without IV contrast. Automated exposure control was utilized for the study. FINDINGS: Note is made of a 1 cm hyperdense focus within the right cerebellar hemisphere shown image 6 of 28. There is mild adjacent hypodensity which suggests edema. Ventricular system is unremarkable. The basilar cisterns are patent. There are no extra axial collections. Extensive white matter hypodensities are noted. There are no CT findings to suggest acute dural sinus thrombosis or acute territorial infarct. Visualized portions of the sinuses and the mastoid air cells are clear. There are no significant calvarial abnormalities. IMPRESSION: 1. 1 cm hyperdense focus within the right cerebellar hemisphere with mild adjacent edema. A small hematoma is favored. However, a hemorrhagic lesion or less likely calcified lesion could appear similar. A follow-up head CT in 12 to 24 hours is recommended. 2. Extensive white matter hypodensities which suggest small vessel disease. Electronically signed by: Jamari Logan M.D. 08/31/2016 10:45 AM Dictated Date/Time: 08/31/2016 10:36 AM
[2016-08-31 10:49] LABS: ZZUR CULT IF INDIC CLEAN CATCH NO
[2016-08-31] MEDS ORDERED: SODIUM CHLORIDE 0.9% 1000ML 1,000 ML IV STA (11:28)
[2016-08-31 12:29] LABS: ISTAT CREATININE 1.3 mg/dl (0.6-1.3); ISTAT HEMOGLOBIN 11.2 g/dl (14.0-18.0); ISTAT IONIZED CALCIUM 1.06 mmol/l (1.12-1.32)
[2016-08-31 13:30] VITALS: Ht 165.1 cm; Wt 72.7 kg
[2016-08-31] MEDS ORDERED: MAGNESIUM HYDROXIDE SUSP 30 ML UDC PO PRN (13:45)
[2016-08-31] MEDS ORDERED: ONDANSETRON INJ 2 MG/ML 2 ML VIAL IV PRN (13:45)
[2016-08-31] MEDS ORDERED: POLYETHYLENE (MIRALAX) 17 GM PACK PO PRN (13:45)
[2016-08-31] MEDS ORDERED: ACETAMINOPHEN 325 MG TAB PO PRN (13:45)
[2016-08-31] MEDS ORDERED: ALUMINUM/MAGNESIUM/SIMETH (MAALOX MAX) 30 ML UDC PO PRN (13:45)
[2016-08-31 14:07] LABS: INR 1.3 (0.9-1.1); PARTIAL THROMBOPLASTIN RATIO 1.2; PROTHROMBIN TIME (PATIENT) 14.5 SECONDS (9.0-12.0)
[2016-08-31 15:00] VITALS: BP 118/53; PULSE 57; TEMP 36.6; O2SAT 97
[2016-08-31] MEDS ORDERED: LACTULOSE SYRUP 20 GM/30 ML UDC PO ONE (15:00)
--- NOTE | 2016-08-31 15:19 | History and Physical ---
History & Physical Date & Time of Service: Aug 31, 2016 at 14:44 Chief Complaint: Disoriented,Extremely Weak,Loss Of Bodily Fuction Primary Care Physician: Edinson Guevara D.O. History of Present Illness Source: patient, family (son) Mr. Foster is an 81 y/o male with PMHx of Alcoholic Liver Cirrhosis with Portal HTN, CKD Stage III/IV, and Dementia who presents to the ED c/o worsening weakness and confusion x 2-3 days. Patient was admitted in June for influenza and D/C'd to [facility] and just returned home on August 01, 2016. Today's complaints are similar to presenting symptoms on previous admission. Most of HPI obtained from son as patient is confused with underlying dementia. Son feels that overall, Mr. Foster has had a general decline in mobility and is rather deconditioned. However, he has noticed increased weakness with ambulation and more confusion x 2-3 days ago. They report that he has had multiple falls recently to the point they placed a camera which captured him falling. Patient does have a walker however is non-compliant with use. He does not recall a specific episode where he has directly hit his head. Yesterday, the patient was trying to urinate on the deck because he thought he was in the bathroom and ultimately was incontinent of urine when trying to get him to the bathroom. This is not a normal issue for this patient. After this episode the patient has reported frequent needs to urinate however most of the time does not produce urine. The son feels that the patient was having slowed responses yesterday and was having difficulty finding his words which have waxed and waned since. Son reports that he believes patient had a BM last night and states his evening lactulose almost always produces a BM. However patient with poor oral intake for 2-3 days as his appetite appears to be improving today. Associated increase in lower extremity and abdominal edema noted. In the ED, Head CT reveals a 1 cm hyperdense focus in the R cerebellar hemisphere with associated edema that favors a hematoma but hemorrhage cannot be excluded. Ammonia is 60. Discussion with son that expresses that patient may not be safe to return home and as a family have discussed permanent placement. They would like to get him to [facility] for some rehab with goal of placement. Family History Hypertension Social History Smoking Status: Former Smoker Alcohol Use: none Drug Use: none Marital Status: Housing status: lives with family Occupational Status: retired Allergies Coded Allergies: No Known Allergies (Unverified , 07/19/16) Home Medications Scheduled Docusate Sodium (Colace), 1 CAP PO DAILY Folic Acid (Folvite), 1 MG PO DAILY Furosemide (Lasix), 20 MG PO DIRECTED Lactulose (Chronulac), 15 ML PO DAILY Multivitamin (Multivitamin), 1 TAB PO DAILY Omeprazole (Prilosec), 20 MG PO DAILY Propranolol HCl (Propranolol HCl), 20 MG PO BID Rifaximin (Xifaxan), 550 MG PO BID Sitagliptin (Januvia), 50 MG PO DAILY Spironolactone (Spironolactone), 100 MG PO QAM Thiamine Hcl (Vitamin B-1), 100 MG PO DAILY Review of Systems Constitutional: No chills, No fever Respiratory: No cough, No shortness of breath Cardiovascular: No chest pain Abdomen: No constipation, No diarrhea, No nausea, No pain, No vomiting Musculoskeletal: + swelling, No calf pain Genitourinary - Male: + urinary frequency, + urinary incontinence Neurologic: + balance problems, + weakness Integumentary: + rash Physical Exam Vital Signs Date Time Temp Pulse Resp B/P Pulse Ox O2 Delivery O2 Flow Rate FiO2 08/31/16 14:18 66 20 108/52 97 Room Air 08/31/16 13:30 Room Air 08/31/16 11:34 57 100/46 98 Room Air 08/31/16 10:42 60 98/45 97 Room Air 08/31/16 09:51 98 08/31/16 09:24 59 08/31/16 09:05 37.0 66 18 106/52 98 Room Air General Appearance: WD/WN, no apparent distress Head: normocephalic, atraumatic Eyes: PERRL, EOMI, sclerae normal ENT: + pertinent finding (chronic hearing loss) Neck: supple, no JVD, trachea midline Respiratory/Chest: lungs clear, no respiratory distress, no accessory muscle use, + decreased breath sounds Cardiovascular: regular rate, rhythm, no gallop, no murmur Abdomen/GI: normal bowel sounds, non tender, soft, + distended Genitourinary - Male: normal phallus, normal testicles Back: + pertinent finding (blanchable erythema of sacral region; bilat small ecchymosis noted to each hip) Extremities/Musculoskelatal: + pertinent finding (1-2+ pitting edema lower extremities bilat) Neurologic/Psych: alert, + disoriented Skin: normal color, warm/dry Diagnostics Laboratory Results Results Past 24 Hours Test 08/31/16 10:00 08/31/16 11:15 08/31/16 12:20 Range/Units White Blood Count 9.66 4.8-10.8 K/uL Red Blood Count 3.21 4.7-6.1 M/uL Hemoglobin 11.8 14.0-18.0 g/dL Hematocrit 32.6 42-52 % Mean Corpuscular Volume 101.6 80-100 fL Mean Corpuscular Hemoglobin 36.8 25-34 pg Mean Corpuscular Hemoglobin Concent 36.2 32-36 g/dl Platelet Count 116 130-400 K/uL Mean Platelet Volume 10.7 7.4-10.4 fL Neutrophils (%) (Auto) 64.2 % Lymphocytes (%) (Auto) 21.2 % Monocytes (%) (Auto) 9.7 % Eosinophils (%) (Auto) 4.1 % Basophils (%) (Auto) 0.7 % Neutrophils # (Auto) 6.19 1.4-6.5 K/uL Lymphocytes # (Auto) 2.05 1.2-3.4 K/uL Monocytes # (Auto) 0.94 0.11-0.59 K/uL Eosinophils # (Auto) 0.40 0-0.5 K/uL Basophils # (Auto) 0.07 0-0.2 K/uL RDW Standard Deviation 59.5 36.4-46.3 fL RDW Coefficient of Variation 16.0 11.5-14.5 % Immature Granulocyte % (Auto) 0.1 % Immature Granulocyte # (Auto) 0.01 0.00-0.02 K/uL Prothrombin Time 14.5 9.0-12.0 SECONDS Prothromb Time International Ratio 1.3 0.9-1.1 Activated Partial Thromboplast Time 30.6 21.0-31.0 SECONDS Partial Thromboplastin Ratio 1.2 Urine Color YELLOW Urine Appearance CLEAR CLEAR Urine pH 5.5 4.5-7.5 Urine Specific [place] 1.020 1.000-1.030 Urine Protein NEG NEG Urine Glucose (UA) NEG NEG Urine Ketones NEG NEG Urine Occult Blood NEG NEG Urine Nitrite NEG NEG Urine Bilirubin NEG NEG Urine Urobilinogen NEG NEG Urine Leukocyte Esterase NEG NEG Sodium Level 138 136-145 mmol/L Potassium Level 3.5-5.1 mmol/L Chloride Level 105 98-107 mmol/L Carbon Dioxide Level 23 21-32 mmol/L Anion Gap 10.0 15.0 16-25 mmol/L Blood Urea Nitrogen 21 7-18 mg/dl Creatinine 1.60 0.60-1.40 mg/dl Est Creatinine Clear Calc Drug Dose 30.4 ml/min Estimated GFR () 45.5 Estimated GFR (Non- 39.3 BUN/Creatinine Ratio 13.4 10-20 Random Glucose 110 70-99 mg/dl Calcium Level 9.3 8.5-10.1 mg/dl Total Bilirubin 2.3 0.2-1 mg/dl Aspartate Amino Transf (AST/SGOT) 15-37 U/L Alanine Aminotransferase (ALT/SGPT) 31 12-78 U/L Alkaline Phosphatase 167 45-117 U/L Ammonia 60.0 11-32 umol/L Total Protein 6.6 6.4-8.2 gm/dl Albumin 2.2 3.4-5.0 gm/dl Globulin 4.4 2.5-4.0 gm/dl Albumin/Globulin Ratio 0.5 0.9-2 Bedside Hemoglobin 11.2 14.0-18.0 g/dl Bedside Hematocrit 33 42-52 % Bedside Sodium 138 135-144 mEq/L Bedside Potassium 4.3 3.3-5.0 mEq/L Bedside Chloride 105 101-112 mEq/L Bedside Total CO2 23 24-31 mEq/l Bedside Blood Urea Nitrogen 23 7-18 mg/dl Bedside Creatinine 1.3 0.6-1.3 mg/dl Bedside Glucose (other) 104 70-99 mg/dl Bedside Ionized Calcium (Spenser) 1.06 1.12-1.32 mmol/l Diagnostic Radiology CT OF THE HEAD WITHOUT CONTRAST CLINICAL HISTORY: Altered mental status. COMPARISON STUDY: No previous studies for comparison. CT DOSE: 537.48 mGy.cm TECHNIQUE: Helical axial images of the head were obtained without IV contrast. Automated exposure control was utilized for the study. FINDINGS: Note is made of a 1 cm hyperdense focus within the right cerebellar hemisphere shown image 6 of 28. There is mild adjacent hypodensity which suggests edema. Ventricular system is unremarkable. The basilar cisterns are patent. There are no extra axial collections. Extensive white matter hypodensities are noted. There are no CT findings to suggest acute dural sinus thrombosis or acute territorial infarct. Visualized portions of the sinuses and the mastoid air cells are clear. There are no significant calvarial abnormalities. IMPRESSION: 1. 1 cm hyperdense focus within the right cerebellar hemisphere with mild adjacent edema. A small hematoma is favored. However, a hemorrhagic lesion or less likely calcified lesion could appear similar. A follow-up head CT in 12 to 24 hours is recommended. 2. Extensive white matter hypodensities which suggest small vessel disease. CHEST ONE VIEW PORTABLE CLINICAL HISTORY: Weakness. COMPARISON STUDY: Chest radiograph July 21, 2016. FINDINGS: Lung volumes are diminished. This is unchanged. Mild cardiomegaly is unchanged. There is no pneumothorax. There is a suspected trace left pleural effusion. No consolidation is identified to suggest pneumonia. There is no radiographic evidence of pulmonary edema. There is pulmonary vascular congestion. IMPRESSION: 1. Pulmonary vascular congestion without overt pulmonary edema. 2. Suspected trace left pleural effusion. 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 Foster is an 81 y/o male with PMHx of Alcoholic Liver Cirrhosis with Portal HTN, T2DM, CKD Stage III/IV, and Dementia who presents to the ED c/o worsening weakness and confusion x 2-3 days. Hepatic Encephalopathy 2/2 Alcoholic Liver Cirrhosis and Anasarca: - Lactulose x 1 dose now - Continue home daily lactulose with increased dosing if necessary - Xifaxan 550 mg BID - Trend ammonia level - Lasix 20 mg daily and Spironolactone 100 mg daily - Will allow initial fluids to finish and no further IVF at this time as patient can take oral fluid 1 cm Hyperdense Focus R Cerebellar Hemisphere with Edema: - This may be contributing to the frequent falls given location; not on blood thinners however given liver disease and age-related atrophy increased risk for hemorrhage - CT Head - image and report reviewed - findings as listed which favors hematoma however cannot eliminate hemorrhage - INR 1.3 with PT 14.5 - Repeat Head CT in AM - Neuro checks Q4H T2DM: HbA1c 5.2 - Son reports due to similar complaints as today they have stopped Januvia. Given patient's A1c he probably had hypoglycemic episodes. - Hold Januvia - BSG AC and HS - SSI in place if needed - do not anticipate coverage DVT Prophylaxis: - TEDs/SCDs - Withhold chemical prophylaxis given Head CT findings Code Status: - FULL RESUSCITATION Disposition: - POA - Daughter - Family does not think he will be safe to return home and have been in contact with [facility]. Wishes are to get patient for acute rehab then bridge the conversation of personal care at that time. Did offer to involve Palliative for goals of care to help discuss this topic now. However son would like to hold off at this time as he feels it will be upsetting. May benefit from further discussion at another time - PT/OT Eval Level of Care Med/Surg Advanced Directives Existing Living Will: No Existing Power of Mission Analyst: Yes Resuscitation Status FULL RESUSCITATION VTE Prophylaxis VTE Risk Assessment Done? Y/N: Yes Risk Level: Moderate Given or contraindicated: T.E.D. Stockings, SCD's
[2016-08-31] MEDS ORDERED: GLUCOSE 10 TABS/TUBE PO PRN (15:45)
[2016-08-31] MEDS ORDERED: GLUCAGON FOR INJ 1 MG VIAL SQ PRN (15:45)
[2016-08-31] MEDS ORDERED: DEXTROSE 50% 50 ML SYR IV PRN (15:45)
[2016-08-31] MEDS ORDERED: GLUCOSE 40% GEL 15 GM TUBE PO PRN (15:45)
[2016-08-31] MEDS ORDERED: LACTULOSE SYRUP 30 GM/45 ML UDP PO ONE (16:15)
[2016-08-31] MEDS: INSULIN ASPART 100 UNITS/ML 3 ML PEN SC SCH ×2 (16:30→21:54)
[2016-08-31] MEDS: LACTULOSE SYRUP 10 GM/15 ML BTL 473 ML PO SCH (19:00)
[2016-08-31] MEDS: RIFAXIMIN TAB 550 MG TAB PO SCH (21:53)
[2016-08-31] MEDS: PROPRANOLOL HCL 20 MG TAB PO SCH (21:55)
[2016-08-31 21:56] VITALS: BP 107/64; PULSE 80
[2016-08-31 22:59] VITALS: BP 111/52; PULSE 87; TEMP 37.2; O2SAT 94
[2016-09-01 06:49] LABS: MEAN CELL VOLUME 99.3 fL (80-100); MEAN CORPUSCULAR HGB CONC 36.2 g/dl (32-36); PLATELET COUNT 105 K/uL (130-400); RED BLOOD COUNT 2.92 M/uL (4.7-6.1); WHITE BLOOD COUNT 9.62 K/uL (4.8-10.8)
[2016-09-01 07:13] LABS: BUN/CREATININE RATIO 12.9 (10-20); CALCIUM 9.1 mg/dl (8.5-10.1); CREATININE 1.6 mg/dl (0.60-1.40); MAGNESIUM 2.2 mg/dl (1.8-2.4); POTASSIUM 4.1 mmol/L (3.5-5.1)
[2016-09-01 07:15] VITALS: BP 115/66; PULSE 82; TEMP 37; O2SAT 98
--- NOTE | 2016-09-01 08:01 | Hospitalist Progress Note ---
Hospitalist Progress Note Date of Service Sep 01, 2016. Subjective Pt evaluation today including: conversation w/ patient, physical exam, chart review, lab review, review of studies, review of inpatient medication list Pain: None PO Intake: Good Voiding: no voiding problems The patient was seen and examined this morning. Pt reports sleeping well overnight. Ate breakfast and is still asking for more. He denies any fever, chills, abd pain, chest pain, shortness of breath, cough. Pt answers questions appropriately however is disoriented with time, date and place. All Other Systems: Reviewed and Negative (other than per HPI) Objective Vital Signs Date Time Temp Pulse Resp B/P Pulse Ox O2 Delivery O2 Flow Rate FiO2 09/01/16 07:15 37.0 82 20 115/66 98 Room Air 09/01/16 00:05 Room Air 08/31/16 22:59 37.2 87 16 111/52 94 Room Air 08/31/16 21:56 80 107/64 08/31/16 20:05 Room Air 08/31/16 16:00 Room Air 08/31/16 15:00 36.6 57 16 118/53 97 Room Air 08/31/16 14:18 66 20 108/52 97 Room Air 08/31/16 13:30 Room Air 08/31/16 11:34 57 100/46 98 Room Air 08/31/16 10:42 60 98/45 97 Room Air 08/31/16 09:51 98 08/31/16 09:24 59 08/31/16 09:05 37.0 66 18 106/52 98 Room Air Physical Exam General Appearance: WD/WN, no apparent distress, + pertinent finding (laying in bed) Eyes: PERRL, EOMI ENT: hearing grossly normal, pharynx normal, + pertinent finding (MMM) Neck: supple, no JVD Respiratory/Chest: chest non-tender, lungs clear, no respiratory distress, no accessory muscle use, + pertinent finding (+ faint crackles on the RLL. ) Cardiovascular: regular rate, rhythm, no JVD, no murmur Abdomen: normal bowel sounds, non tender, soft Extremities: non-tender, no pedal edema, no calf tenderness, + pertinent finding (+ open skin tears on bilateral elbows) Neurologic/Psychiatric: alert, normal mood/affect, + disoriented, + pertinent finding (unable to follow commands for strength testing) Skin: normal color, + pertinent finding (dry skin on extremities, + skin tears over elbows and excoriations over bilateral forearms. ) Laboratory Results Last 24 Hours Test 08/31/16 10:00 08/31/16 11:15 08/31/16 12:20 08/31/16 16:35 White Blood Count 9.66 K/uL Red Blood Count 3.21 M/uL Hemoglobin 11.8 g/dL Hematocrit 32.6 % Mean Corpuscular Volume 101.6 fL Mean Corpuscular Hemoglobin 36.8 pg Mean Corpuscular Hemoglobin Concent 36.2 g/dl Platelet Count 116 K/uL Mean Platelet Volume 10.7 fL Neutrophils (%) (Auto) 64.2 % Lymphocytes (%) (Auto) 21.2 % Monocytes (%) (Auto) 9.7 % Eosinophils (%) (Auto) 4.1 % Basophils (%) (Auto) 0.7 % Neutrophils # (Auto) 6.19 K/uL Lymphocytes # (Auto) 2.05 K/uL Monocytes # (Auto) 0.94 K/uL Eosinophils # (Auto) 0.40 K/uL Basophils # (Auto) 0.07 K/uL RDW Standard Deviation 59.5 fL RDW Coefficient of Variation 16.0 % Immature Granulocyte % (Auto) 0.1 % Immature Granulocyte # (Auto) 0.01 K/uL Prothrombin Time 14.5 SECONDS Prothromb Time International Ratio 1.3 Activated Partial Thromboplast Time 30.6 SECONDS Partial Thromboplastin Ratio 1.2 Urine Color YELLOW Urine Appearance CLEAR Urine pH 5.5 Urine Specific [place] 1.020 Urine Protein NEG Urine Glucose (UA) NEG Urine Ketones NEG Urine Occult Blood NEG Urine Nitrite NEG Urine Bilirubin NEG Urine Urobilinogen NEG Urine Leukocyte Esterase NEG Sodium Level 138 mmol/L Potassium Level mmol/L mmol/L Chloride Level 105 mmol/L Carbon Dioxide Level 23 mmol/L Anion Gap 10.0 mmol/L 15.0 mmol/L Blood Urea Nitrogen 21 mg/dl Creatinine 1.60 mg/dl Est Creatinine Clear Calc Drug Dose 30.4 ml/min Estimated GFR () 45.5 Estimated GFR (Non- 39.3 BUN/Creatinine Ratio 13.4 Random Glucose 110 mg/dl Calcium Level 9.3 mg/dl Total Bilirubin 2.3 mg/dl Aspartate Amino Transf (AST/SGOT) U/L U/L Alanine Aminotransferase (ALT/SGPT) 31 U/L Alkaline Phosphatase 167 U/L Ammonia 60.0 umol/L Total Protein 6.6 gm/dl Albumin 2.2 gm/dl Globulin 4.4 gm/dl Albumin/Globulin Ratio 0.5 Bedside Hemoglobin 11.2 g/dl Bedside Hematocrit 33 % Bedside Sodium 138 mEq/L Bedside Potassium 4.3 mEq/L Bedside Chloride 105 mEq/L Bedside Total CO2 23 mEq/l Bedside Blood Urea Nitrogen 23 mg/dl Bedside Creatinine 1.3 mg/dl Bedside Glucose (other) 104 mg/dl Bedside Ionized Calcium ([place]) 1.06 mmol/l Bedside Glucose 133 mg/dl Test 08/31/16 20:02 09/01/16 06:25 09/01/16 07:27 Bedside Glucose 134 mg/dl 104 mg/dl White Blood Count 9.62 K/uL Red Blood Count 2.92 M/uL Hemoglobin 10.5 g/dL Hematocrit 29.0 % Mean Corpuscular Volume 99.3 fL Mean Corpuscular Hemoglobin 36.0 pg Mean Corpuscular Hemoglobin Concent 36.2 g/dl RDW Standard Deviation 58.6 fL RDW Coefficient of Variation 16.2 % Platelet Count 105 K/uL Mean Platelet Volume 10.0 fL Sodium Level 143 mmol/L Potassium Level 4.1 mmol/L Chloride Level 108 mmol/L Carbon Dioxide Level 24 mmol/L Anion Gap 11.0 mmol/L Blood Urea Nitrogen 21 mg/dl Creatinine 1.60 mg/dl Est Creatinine Clear Calc Drug Dose 30.4 ml/min Estimated GFR () 45.5 Estimated GFR (Non- 39.3 BUN/Creatinine Ratio 12.9 Random Glucose 113 mg/dl Calcium Level 9.1 mg/dl Magnesium Level 2.2 mg/dl Ammonia 70.0 umol/L Assessment and Plan 81 y/o male with PMHx of Alcoholic Liver Cirrhosis with Portal HTN, T2DM, CKD Stage III/IV, and Dementia who presents to the ED c/o worsening weakness and confusion x 2-3 days. 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 - Xifaxan 550 mg BID - Trend ammonia level, increased from 60 --> 70 today - Lasix 20 mg daily and Spironolactone 100 mg daily - Encourage oral hydration, no need for IVFs, tolerating oral diet well. 1 cm Hyperdense Focus R Cerebellar Hemisphere with Edema: - This may be contributing to the frequent falls given location; not on blood thinners however given liver disease and age-related atrophy increased risk for hemorrhage - CT Head - image and report reviewed - findings as listed which favors hematoma however cannot eliminate hemorrhage - INR 1.3 with PT 14.5 - Repeat Head CT this morning: IMPRESSION: No change in the 1 cm hyperdense focus within the right cerebellar hemisphere with mild associated edema since head CT of August 31, 2016. Differential considerations include a small hematoma or hemorrhagic lesion. A follow-up head CT in 2-3 days is recommended. - Neuro checks Q4H DM II: HbA1c 5.2 - Son reports due to similar complaints as today they have stopped Januvia. Given patient's A1c he probably had hypoglycemic episodes. - Hold Januvia - BSG AC and HS - SSI in place if needed - do not anticipate coverage DVT Ppx: - TEDs/SCDs - Withhold chemical prophylaxis given Head CT findings Code Status: - FULL RESUSCITATION Disposition: - POA - Daughter - Family does not think he will be safe to return home and have been in contact with [facility]. Wishes are to get patient for acute rehab then bridge the conversation of personal care at that time. Did offer to involve Palliative for goals of care to help discuss this topic now. However son would like to hold off at this time as he feels it will be upsetting. May benefit from further discussion at another time
[2016-09-01 08:22] VITALS: BP 110/60; PULSE 80; TEMP 37; O2SAT 98
[2016-09-01] MEDS: FUROSEMIDE 20 MG TAB PO SCH (08:22)
--- NOTE | 2016-09-01 08:24 | DIAGNOSTIC IMAGING REPORT ---
CT OF THE HEAD WITHOUT CONTRAST CLINICAL HISTORY: Follow up cerebellar hematoma. COMPARISON STUDY: Head CT August 31, 2016 CT DOSE: 537.48 mGy.cm TECHNIQUE: Helical axial images of the head were obtained without IV contrast. Automated exposure control was utilized for the study. FINDINGS: The 1 cm hyperdense focus with mild edema within the right cerebellar hemisphere is unchanged since exam of August 31, 2016. No additional hyperdense foci are identified. Ventricular system is unremarkable for age. The basilar cisterns are patent. There are no extra-axial collections. Extensive white matter hypodensities favor small vessel disease. There are no findings to suggest acute dural sinus thrombosis or acute territorial infarct. Trace fluid within the right mastoid air cells is noted. There is minimal mucosal thickening of the sinuses. There are no significant calvarial abnormalities. IMPRESSION: No change in the 1 cm hyperdense focus within the right cerebellar hemisphere with mild associated edema since head CT of August 31, 2016. Differential considerations include a small hematoma or hemorrhagic lesion. A follow-up head CT in 2-3 days is recommended. Electronically signed by: Jamari Logan M.D. 09/01/2016 8:22 AM Dictated Date/Time: 09/01/2016 8:07 AM
[2016-09-01] MEDS: SPIRONOLACTONE 100 MG TAB PO SCH (08:25)
[2016-09-01] MEDS: RIFAXIMIN TAB 550 MG TAB PO SCH ×2 (08:26→21:45)
[2016-09-01] MEDS: MULTIVITAMIN TAB PO SCH (08:26)
[2016-09-01] MEDS: LACTULOSE SYRUP 10 GM/15 ML BTL 473 ML PO SCH (08:26)
[2016-09-01] MEDS: DOCUSATE SODIUM 100 MG CAP PO SCH (08:27)
[2016-09-01] MEDS: THIAMINE HCL 100 MG TAB PO SCH (08:27)
[2016-09-01] MEDS: PROPRANOLOL HCL 20 MG TAB PO SCH ×2 (08:28→21:45)
[2016-09-01] MEDS: INSULIN ASPART 100 UNITS/ML 3 ML PEN SC SCH ×4 (08:28→21:45)
[2016-09-01 08:49] VITALS: O2SAT 98
[2016-09-01] MEDS ORDERED: SITAGLIPTIN 25 MG TAB PO SCH (09:00)
[2016-09-01] MEDS ORDERED: DOCUSATE SODIUM 100 MG CAP PO SCH (09:00)
[2016-09-01] MEDS ORDERED: LACTULOSE SYRUP 20 GM/30 ML UDC PO SCH (09:00)
[2016-09-01] MEDS ORDERED: LACTULOSE SYRUP 10 GM/15 ML BTL 473 ML PO ONE (09:45)
[2016-09-01] MEDS ORDERED: NURSING VERBAL MED ORDER ONE (16:45)
[2016-09-01] MEDS ORDERED: LACTULOSE SYRUP 20 GM/30 ML UDC PO ONE (18:00)
[2016-09-01] MEDS ORDERED: LACTULOSE SYRUP 10 GM/15 ML BTL 473 ML PO SCH ×2 (19:00)
[2016-09-01] MEDS: LACTULOSE SYRUP 20 GM/30 ML UDC PO SCH (21:45)
[2016-09-02 00:04] VITALS: BP 115/68; PULSE 77; TEMP 37.1; O2SAT 97
[2016-09-02 07:33] VITALS: BP 93/51; PULSE 64; TEMP 37.1; O2SAT 99
--- NOTE | 2016-09-02 07:57 | Hospitalist Progress Note ---
Hospitalist Progress Note Date of Service Sep 02, 2016. Subjective Pt evaluation today including: conversation w/ patient The patient was seen and examined this morning. Pt reports feeling well, no acute complaints and is looking forward to discharge. All Other Systems: Reviewed and Negative Objective Vital Signs Date Time Temp Pulse Resp B/P Pulse Ox O2 Delivery O2 Flow Rate FiO2 09/02/16 07:33 37.1 64 20 93/51 99 09/02/16 00:04 37.1 77 20 115/68 97 09/01/16 16:00 Room Air 09/01/16 08:49 98 Room Air 09/01/16 08:22 37.0 80 18 110/60 98 Room Air 09/01/16 08:00 Room Air Physical Exam General Appearance: WD/WN, no apparent distress Eyes: PERRL, EOMI ENT: hearing grossly normal, + pertinent finding (MMM no pharynx erythema or exudate) Neck: supple, no JVD Respiratory/Chest: chest non-tender, lungs clear, normal breath sounds, no respiratory distress, no accessory muscle use Cardiovascular: regular rate, rhythm, + systolic murmur Abdomen: normal bowel sounds, non tender, soft Extremities: non-tender, no pedal edema, no calf tenderness Neurologic/Psychiatric: alert, normal mood/affect, + disoriented Skin: normal color, warm/dry Laboratory Results Last 24 Hours Test 09/01/16 11:20 09/01/16 15:59 09/01/16 21:42 Bedside Glucose 186 mg/dl 126 mg/dl 156 mg/dl Assessment and Plan 81 y/o male with PMHx of Alcoholic Liver Cirrhosis with Portal HTN, T2DM, CKD Stage III/IV, and Dementia who presents to the ED c/o worsening weakness and confusion x 2-3 days. 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 - Was given extra dose of Lactulose yesterday by Dr. Dozier, pt has had two BMs so far today. Titrate lactulose as needed. - Xifaxan 550 mg BID - Trend ammonia level, increased from 60 --> 70 --> 43 - Lasix 20 mg daily and Spironolactone 100 mg daily - Encourage oral hydration, no need for IVFs, tolerating oral diet well. 1 cm Hyperdense Focus R Cerebellar Hemisphere with Edema: - This may be contributing to the frequent falls given location; not on blood thinners however given liver disease and age-related atrophy increased risk for hemorrhage - CT Head - image and report reviewed - findings as listed which favors hematoma however cannot eliminate hemorrhage - INR 1.3 with PT 14.5 - Repeat Head CT this morning: IMPRESSION: No change in the 1 cm hyperdense focus within the right cerebellar hemisphere with mild associated edema since head CT of August 31, 2016. Differential considerations include a small hematoma or hemorrhagic lesion. A follow-up head CT in 2-3 days is recommended. - Neuro checks Q4H DM II: HbA1c 5.2 - Son reports due to similar complaints as today they have stopped Januvia. Given patient's A1c he probably had hypoglycemic episodes. - Hold Januvia - BSG AC and HS - SSI in place if needed - do not anticipate coverage DVT Ppx: - TEDs/SCDs - Withhold chemical prophylaxis given Head CT findings Code Status: - FULL RESUSCITATION Disposition: - POA - Daughter - Family does not think he will be safe to return home and have been in contact with [facility] [place]. Wishes are to get patient for acute rehab then bridge the conversation of personal care at that time. Did offer to involve Palliative for goals of care to help discuss this topic now.
[2016-09-02] MEDS: INSULIN ASPART 100 UNITS/ML 3 ML PEN SC SCH ×4 (08:07→21:00)
[2016-09-02] MEDS: THIAMINE HCL 100 MG TAB PO SCH (08:11)
[2016-09-02] MEDS: SPIRONOLACTONE 100 MG TAB PO SCH (08:13)
[2016-09-02] MEDS: MULTIVITAMIN TAB PO SCH (08:14)
[2016-09-02] MEDS: FUROSEMIDE 20 MG TAB PO SCH (08:14)
[2016-09-02] MEDS: RIFAXIMIN TAB 550 MG TAB PO SCH ×2 (08:14→21:15)
[2016-09-02] MEDS: PROPRANOLOL HCL 20 MG TAB PO SCH ×2 (08:15→21:15)
[2016-09-02] MEDS: LACTULOSE SYRUP 20 GM/30 ML UDC PO SCH ×2 (08:15→21:15)
[2016-09-02] MEDS: DOCUSATE SODIUM 100 MG CAP PO SCH (08:15)
[2016-09-02 09:59] VITALS: BP 99/49
[2016-09-02] MEDS ORDERED: LCTL30 PO (10:02)
--- NOTE | 2016-09-02 10:07 | Discharge Instructions ---
Discharge Instructions Admission Reason for Admission: Hepatic Encephalopathy Discharge Discharge Diagnosis / Problem: Hepatic encephalopathy Discharge Goals Goal(s): Decrease discomfort, Improve function Activity Recommendations Activity Limitations: resume your previous activity Lifting Limitations: no more than 10 pounds Exercise/Sports Limitations: as tolerated Shower/Bathe: no limitations (with assistance) Driving or Machine Use: no limitations . Instructions / Follow-Up Instructions / Follow-Up You were admitted to [facility] with hepatic encephalopathy and diagnosed with the same.. During your stay here you were treated with lactulose to decrease ammonia level. Please titrate this medication to make you have 3 bowel movements daily. Imaging studies which were completed include CT head/brain, which showed a 1 cm hyperdense foci which should be followed by your doctor at [facility]. If you have changes in mental status consider a repeat CT of the head. Radiology has recommended that you have a follow up in 2-3 days. Follow up with your PCP at [facility] within the next 24 hours. Titrate lactulose to 3 bowel movements daily. Your dosage has been increased from 10 mg BID to 20 mg BID. Current Hospital Diet Patient's current hospital diet: Low Sodium Diet (2gm Na) Discharge Diet Recommended Diet: Low Sodium Diet (2gm Na) Procedures Procedures Performed: None Pending Studies Studies pending at discharge: no Laboratory Results Hemoglobin A1c Test 07/22/16 05:25 Range/Units Estimated Average Glucose 103 mg/dl Hemoglobin A1c 5.2 4.5-5.6 % Medical Emergencies . Who to Call and When: Medical Emergencies: If at any time you feel your situation is an emergency, please call 911 immediately. . Non-Emergent Contact Non-Emergency issues call your: Primary Care Provider Call Non-Emergent contact if: you have a fever . Past History Medical & Surgical History: (1) Hepatic encephalopathy (2) Focal hematoma of cerebellum . "Provider Documentation" section prepared by Ana M Villanueva. VTE Core Measure Inpt VTE Proph given/why not?: Cynthia Corbin, SCD's
--- NOTE | 2016-09-02 10:18 | Discharge Summary ---
Discharge Summary Admission Date: Aug 31, 2016 at 13:48 Discharge Date: Sep 02, 2016 [facility]charge Disposition: [facility] Principal Diagnosis: Hepatic Encephalopathy Problems/Secondary Diagnoses: Hepatic encephalopathy, alcoholic cirrhosis, confusion, demential, portal HTN, hx ICH Procedures: CT OF THE HEAD WITHOUT CONTRAST CLINICAL HISTORY: Altered mental status. COMPARISON STUDY: No previous studies for comparison. CT DOSE: 537.48 mGy.cm TECHNIQUE: Helical axial images of the head were obtained without IV contrast. Automated exposure control was utilized for the study. FINDINGS: Note is made of a 1 cm hyperdense focus within the right cerebellar hemisphere shown image 6 of 28. There is mild adjacent hypodensity which suggests edema. Ventricular system is unremarkable. The basilar cisterns are patent. There are no extra axial collections. Extensive white matter hypodensities are noted. There are no CT findings to suggest acute dural sinus thrombosis or acute territorial infarct. Visualized portions of the sinuses and the mastoid air cells are clear. There are no significant calvarial abnormalities. IMPRESSION: 1. 1 cm hyperdense focus within the right cerebellar hemisphere with mild adjacent edema. A small hematoma is favored. However, a hemorrhagic lesion or less likely calcified lesion could appear similar. A follow-up head CT in 12 to 24 hours is recommended. 2. Extensive white matter hypodensities which suggest small vessel disease. Electronically signed by: Jamari Logan M.D. 08/31/2016 10:45 AM Dictated Date/Time: 08/31/2016 10:36 AM The status of this report is Signed. CHEST ONE VIEW PORTABLE CLINICAL HISTORY: Weakness. COMPARISON STUDY: Chest radiograph July 21, 2016. FINDINGS: Lung volumes are diminished. This is unchanged. Mild cardiomegaly is unchanged. There is no pneumothorax. There is a suspected trace left pleural effusion. No consolidation is identified to suggest pneumonia. There is no radiographic evidence of pulmonary edema. There is pulmonary vascular congestion. IMPRESSION: 1. Pulmonary vascular congestion without overt pulmonary edema. 2. Suspected trace left pleural effusion. Electronically signed by: Jamari Logan M.D. 08/31/2016 10:33 AM Dictated Date/Time: 08/31/2016 10:32 AM The status of this report is Signed. CT OF THE HEAD WITHOUT CONTRAST CLINICAL HISTORY: Follow up cerebellar hematoma. COMPARISON STUDY: Head CT August 31, 2016 CT DOSE: 537.48 mGy.cm TECHNIQUE: Helical axial images of the head were obtained without IV contrast. Automated exposure control was utilized for the study. FINDINGS: The 1 cm hyperdense focus with mild edema within the right cerebellar hemisphere is unchanged since exam of August 31, 2016. No additional hyperdense foci are identified. Ventricular system is unremarkable for age. The basilar cisterns are patent. There are no extra-axial collections. Extensive white matter hypodensities favor small vessel disease. There are no findings to suggest acute dural sinus thrombosis or acute territorial infarct. Trace fluid within the right mastoid air cells is noted. There is minimal mucosal thickening of the sinuses. There are no significant calvarial abnormalities. IMPRESSION: No change in the 1 cm hyperdense focus within the right cerebellar hemisphere with mild associated edema since head CT of August 31, 2016. Differential considerations include a small hematoma or hemorrhagic lesion. A follow-up head CT in 2-3 days is recommended. Electronically signed by: Jamari Logan M.D. 09/01/2016 8:22 AM Dictated Date/Time: 09/01/2016 8:07 AM The status of this report is Signed. Consultations: None Medication Reconciliation New Medications: Lactulose (Lactulose) 20 Gm/30 Ml Syrp 20 GM PO BID for 30 Days, #60 DOSE Continued Medications: Docusate Sodium (Colace) 100 Mg Cap 1 CAP PO DAILY for 30 Days, #30 CAP Folic Acid (Folvite) 1 Mg Tab 1 MG PO DAILY, TAB Furosemide (Lasix) 20 Mg Tab 20 MG PO DIRECTED, TAB Multivitamin (Multivitamin) Tab 1 TAB PO DAILY, TAB Omeprazole (Prilosec) 20 Mg Capcr 20 MG PO DAILY, CAP Propranolol HCl (Propranolol HCl) 20 Mg Tab 20 MG PO BID for 30 Days, TAB Rifaximin (Xifaxan) 550 Mg Tab 550 MG PO BID for 30 Days, TAB Sitagliptin (Januvia) 100 Mg Tab 50 MG PO DAILY for 30 Days, TAB Spironolactone (Spironolactone) 100 Mg Tab 100 MG PO QAM for 30 Days, TAB Thiamine Hcl (Vitamin B-1) 100 Mg Tab 100 MG PO DAILY, TAB Discontinued Medications: Lactulose (Chronulac) 10 Gm/15 Ml Syrp 15 ML PO DAILY Discharge Exam The patient was seen and examined this morning. Pt reports feeling well, anticipating discharge today. ROS: 10 point ROS was reviewed and negative. Physical Exam: General Appearance: WD/WN, no apparent distress Eyes: PERRL, EOMI ENT: hearing grossly normal, pharynx normal Neck: supple, no JVD Respiratory/Chest: lungs clear, normal breath sounds, no respiratory distress, no accessory muscle use Cardiovascular: regular rate, rhythm, + systolic murmur Abdomen / GI: normal bowel sounds, non tender, soft Extremities: normal inspection, no calf tenderness, no pedal edema Neurologic/Psychiatric: alert, normal mood/affect, + disoriented Skin: normal color, warm/dry Hospital Course (1) Hepatic encephalopathy Status: Acute Pt was treated with lactulose 20 mg BID, titrated for 3 bowel movements daily. His ammonia level improved. Pt was not as lethargic, bright and able to follow commands and answer questions appropriately. The patient is disoriented at baseline to date, time and place. (2) Focal hematoma of cerebellum Status: Acute Stable, would recommend a repeat CT head in 2-3 days. Hospital H&P History of Present Illness Source: patient, family (son) Mr. Foster is an 81 y/o male with PMHx of Alcoholic Liver Cirrhosis with Portal HTN, CKD Stage III/IV, and Dementia who presents to the ED c/o worsening weakness and confusion x 2-3 days. Patient was admitted in June for influenza and D/C'd to [facility] and just returned home on August 01, 2016. Today's complaints are similar to presenting symptoms on previous admission. Most of HPI obtained from son as patient is confused with underlying dementia. Son feels that overall, Mr. Foster has had a general decline in mobility and is rather deconditioned. However, he has noticed increased weakness with ambulation and more confusion x 2-3 days ago. They report that he has had multiple falls recently to the point they placed a camera which captured him falling. Patient does have a walker however is non-compliant with use. He does not recall a specific episode where he has directly hit his head. Yesterday, the patient was trying to urinate on the deck because he thought he was in the bathroom and ultimately was incontinent of urine when trying to get him to the bathroom. This is not a normal issue for this patient. After this episode the patient has reported frequent needs to urinate however most of the time does not produce urine. The son feels that the patient was having slowed responses yesterday and was having difficulty finding his words which have waxed and waned since. Son reports that he believes patient had a BM last night and states his evening lactulose almost always produces a BM. However patient with poor oral intake for 2-3 days as his appetite appears to be improving today. Associated increase in lower extremity and abdominal edema noted. In the ED, Head CT reveals a 1 cm hyperdense focus in the R cerebellar hemisphere with associated edema that favors a hematoma but hemorrhage cannot be excluded. Ammonia is 60. Discussion with son that expresses that patient may not be safe to return home and as a family have discussed permanent placement. They would like to get him to [facility] for some rehab with goal of placement. Hospital Course: 81 y/o male with PMHx of Alcoholic Liver Cirrhosis with Portal HTN, T2DM, CKD Stage III/IV, and Dementia who presents to the ED c/o worsening weakness and confusion x 2-3 days. 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 - Was given extra dose of Lactulose yesterday by Dr. Dozier, pt has had two BMs so far today. Titrate lactulose as needed. - Xifaxan 550 mg BID - Trend ammonia level, increased from 60 --> 70 --> 43 - Lasix 20 mg daily and Spironolactone 100 mg daily - Encourage oral hydration, no need for IVFs, tolerating oral diet well. 1 cm Hyperdense Focus R Cerebellar Hemisphere with Edema: - This may be contributing to the frequent falls given location; not on blood thinners however given liver disease and age-related atrophy increased risk for hemorrhage - CT Head - image and report reviewed - findings as listed which favors hematoma however cannot eliminate hemorrhage - INR 1.3 with PT 14.5 - Repeat Head CT this morning: IMPRESSION: No change in the 1 cm hyperdense focus within the right cerebellar hemisphere with mild associated edema since head CT of August 31, 2016. Differential considerations include a small hematoma or hemorrhagic lesion. A follow-up head CT in 2-3 days is recommended. - Neuro checks Q4H DM II: HbA1c 5.2 - Son reports due to similar complaints as today they have stopped Januvia. Given patient's A1c he probably had hypoglycemic episodes. - Hold Januvia - BSG AC and HS - SSI in place if needed - do not anticipate coverage DVT Ppx: - TEDs/SCDs - Withhold chemical prophylaxis given Head CT findings Code Status: - FULL RESUSCITATION Disposition: - POA - Daughter - Family does not think he will be safe to return home and have been in contact with [facility]. Wishes are to get patient for acute rehab then bridge the conversation of personal care at that time. Did offer to involve Palliative for goals of care to help discuss this topic now. Total Time Spent: Greater than 30 minutes This includes examination of the patient, discharge planning, medication reconciliation, and communication with other providers. Discharge Instructions Please refer to the electronic Patient Visit Report (Discharge Instructions) for additional information. Follow-Up Follow up with your Primary Care Provider at [facility] within 24 hours
[2016-09-02 15:28] VITALS: BP 107/61; PULSE 60; TEMP 36.6; O2SAT 96
[2016-09-02 21:20] VITALS: BP 107/56; PULSE 72
[2016-09-03] VITALS: BP 130/69; PULSE 82; TEMP 37; O2SAT 95; O2SAT 96
[2016-09-03] MEDS: INSULIN ASPART 100 UNITS/ML 3 ML PEN SC SCH ×2 (06:30→13:49)
[2016-09-03 07:53] VITALS: BP 100/52; PULSE 56; TEMP 36.7; O2SAT 95
[2016-09-03 07:56] LABS: BASO % 0.9 %; COMPLETE YES; EOS % 8.5 %; IG% 0.2 %; LYMPH % 25.2 %; LYMPH ABS # 2.69 K/uL (1.2-3.4); MEAN CELL VOLUME 103.8 fL (80-100); MEAN CORPUSCULAR HGB CONC 34.7 g/dl (32-36); MEAN PLATELET VOLUME 10.2 fL (7.4-10.4); MONO % 10.2 %; PLATELET COUNT 104 K/uL (130-400); RED BLOOD COUNT 2.89 M/uL (4.7-6.1); WHITE BLOOD COUNT 10.68 K/uL (4.8-10.8)
[2016-09-03] MEDS: DOCUSATE SODIUM 100 MG CAP PO SCH ×2 (08:17→08:29)
[2016-09-03] MEDS: THIAMINE HCL 100 MG TAB PO SCH (08:17)
[2016-09-03] MEDS: RIFAXIMIN TAB 550 MG TAB PO SCH (08:18)
[2016-09-03] MEDS: PROPRANOLOL HCL 20 MG TAB PO SCH (08:18)
[2016-09-03] MEDS: SPIRONOLACTONE 100 MG TAB PO SCH (08:19)
[2016-09-03] MEDS: MULTIVITAMIN TAB PO SCH (08:19)
[2016-09-03] MEDS: FUROSEMIDE 20 MG TAB PO SCH (08:19)
[2016-09-03] MEDS: LACTULOSE SYRUP 20 GM/30 ML UDC PO SCH (08:21)
[2016-09-03 08:25] LABS: BUN/CREATININE RATIO 12.8 (10-20); CALCIUM 8.6 mg/dl (8.5-10.1); CREATININE 1.5 mg/dl (0.60-1.40); POTASSIUM 4.3 mmol/L (3.5-5.1)
[2016-09-03 08:44] VITALS: O2SAT 95
[2016-09-03 14:15] VITALS: BP 100/52; PULSE 56; TEMP 36.7; O2SAT 95
--- NOTE | 2016-09-05 10:44 | EDITING REQUIRED CODING QUERY ---
CODING QUERY To promote full compliance with coding requirements relating to patient care, provider participation is requested in all cases of workers compensation claims assistant uncertainty. Please assist us with the question(s) below: Coding Question(s): Please specify below, in your clinical opinion, regarding the 1 cm hyperdense focus R Cerebellar Hemisphere with Edema that is documented as possible small hematoma or hemorrhagic lesion. ( X) likely Non-traumatic etiology ( ) likely caused by Trauma Physician's Response(s): Thank you Francoise Hammond Principal Diagnosis: "_that condition established after study, to be chiefly responsible for occasioning the admission of the patient to the hospital for care." Co-Existing Principal Diagnosis: "_when two or more diagnoses equally meet the criteria for principal diagnosis as determined by the circumstances of admission, diagnostic work up, and/or therapy provided, and the Alphabetic Index, Tabular List, or another coding guideline does not provide sequencing direction, any one of the diagnoses may be sequenced first." "When the physician has documented what appears to be a current diagnosis in the body of the record, but has not included the diagnosis in the final diagnostic statement, the physician should be asked whether the diagnosis should be added." (Source Coding [facility] 2 QTR90. p3-4)
== END 2016-09-03 15:25 | DRG 432 ==
LOC: ENRESERVDT → ENRESERVTM → C.EDB 09:05 → C.MS2W 13:48
PROVIDERS: ADMIT Internal Medicine; ATTEND Hospitalist
DX: K70.40 Alcoholic hepatic failure without coma (principal); I61.4 Nontraumatic intracerebral hemorrhage in cerebellum; G93.6 Cerebral edema; K76.6 Portal hypertension; N18.4 Chronic kidney disease, stage 4 (severe); K70.30 Alcoholic cirrhosis of liver without ascites; R60.1 Generalized edema; F03.90 Unspecified dementia, unspecified severity, without behavioral disturbance, psychotic disturbance, mood disturbance, and anxiety; E11.9 Type 2 diabetes mellitus without complications; H91.90 Unspecified hearing loss, unspecified ear; Z79.899 Other long term (current) drug therapy; Z79.84 Long term (current) use of oral hypoglycemic drugs; Z91.81 History of falling; Z87.891 Personal history of nicotine dependence; Z82.49 Family history of ischemic heart disease and other diseases of the circulatory system

== ENCOUNTER → 2016-09-05 | Outpatient (CLI) | payer OTHER, MEDICARE ==
[~2016-09-05] MED LIST changes: -LACT10SO17 PO; +LCTL30 PO; -TMFUDL30 PO
--- NOTE | 2016-09-05 14:07 | DIAGNOSTIC IMAGING REPORT ---
HEAD CT NONCONTRAST CT DOSE: 537.48 mGy.cm HISTORY: Follow-up abnormal CT. TECHNIQUE: Multiaxial CT images of the head were performed without the use of intravenous contrast. Automated exposure control was utilized for this study. Comparison: Head CT 09/01/2016. Findings: The paranasal sinuses and mastoid air cells are clear. Calvarium and skull base are intact. Slight decreased density in the 1 cm hyperdense focus within the right cerebellar hemisphere with mild surrounding edema. Atrophy and presumed microvascular ischemic changes are again noted. No midline shift or acute infarct. Impression: Slight decreased density in the 1 cm hyperdense focus with surrounding edema within the right cerebellar hemisphere. No significant mass effect. This favors expected evolution of a hemorrhagic focus. Recommend follow-up to complete resolution. Electronically signed by: Cleve Weinstein M.D. 09/05/2016 2:06 PM Dictated Date/Time: 09/05/2016 2:01 PM
== END | disposition home or self-care (01) ==
LOC: C.CTS 13:15
PROVIDERS: ATTEND Internal Medicine
DX: R93.8 Abnormal findings on diagnostic imaging of other specified body structures (principal)

== ENCOUNTER → 2016-10-27 | Outpatient (CLI) | payer OTHER, MEDICARE ==
--- NOTE | 2016-10-27 14:48 | DIAGNOSTIC IMAGING REPORT ---
HEAD CT NONCONTRAST CT DOSE: 823.94 mGycm HISTORY: Abnormal CT. FOLLOW UP STUDY TECHNIQUE: Multiaxial CT images of the head were performed without the use of intravenous contrast. Automated exposure control was utilized for this study. Comparison: 09/05/2016. Findings: The paranasal sinuses and mastoid air cells are clear. The calvarium and skull base are intact. There is no mass, hematoma, midline shift, acute infarct. White matter hypodensity is nonspecific but suggestive of microvascular ischemic change. The ventricles and sulci demonstrate mild age-related involutional changes. The right cerebellar hemorrhagic focus has resolved in the interval. Impression: Interval resolution of the right cerebellar hemorrhagic focus. Electronically signed by: Cleve Weinstein M.D. 10/27/2016 2:45 PM Dictated Date/Time: 10/27/2016 2:43 PM
== END ==
LOC: C.CTS 13:24
PROVIDERS: ATTEND Internal Medicine
DX: R90.89 Other abnormal findings on diagnostic imaging of central nervous system (principal)

== ENCOUNTER → 2016-10-31 | Outpatient (CLI) | payer OTHER, MEDICARE | END | disposition home or self-care (01) | LOC: C.LABCC 08:28 | PROVIDERS: ATTEND Internal Medicine | DX: K74.60 Unspecified cirrhosis of liver (principal) ==

== ENCOUNTER → 2016-11-09 | Outpatient (CLI) | payer OTHER, MEDICARE ==
[2016-11-09 08:37] LABS: BLOOD UREA NITROGEN 14 mg/dl (7-18); BUN/CREATININE RATIO 10.7 (10-20); CARBON DIOXIDE 27 mmol/L (21-32); CHLORIDE 108 mmol/L (98-107); GLUCOSE 114 mg/dl (70-99); POTASSIUM 4.1 mmol/L (3.5-5.1); SODIUM 141 mmol/L (136-145)
[2016-11-09 08:54] LABS: CALCIUM 8.3 mg/dl (8.5-10.1)
== END ==
LOC: C.LABCC 16:49
PROVIDERS: ATTEND Internal Medicine
DX: R60.0 Localized edema (principal)

== ENCOUNTER → 2016-11-11 | Outpatient (CLI) | payer OTHER, MEDICARE ==
[2016-11-12 01:32] LABS: HEMATOCRIT 35.8 % (42-52); MEAN CELL VOLUME 106.2 fL (80-100); MEAN CORPUSCULAR HEMOGLOBIN 36.8 pg (25-34); MEAN CORPUSCULAR HGB CONC 34.6 g/dl (32-36); RED BLOOD COUNT 3.37 M/uL (4.7-6.1); WHITE BLOOD COUNT 12.21 K/uL (4.8-10.8)
[2016-11-12 01:38] LABS: URINE APPEARANCE CLOUDY (CLEAR); URINE BILIRUBIN NEG (NEG); URINE COLOR DK YELLOW; URINE NITRITE POS (NEG); URINE SPECIFIC GRAVITY 1.019 (1.000-1.030); UROBILINOGEN NEG (NEG)
[2016-11-12 01:40] LABS: MANUAL MICROSCOPIC REQUIRED? NO; REVIEW REQ? YES
[2016-11-12 01:48] LABS: BASO % 0.2 %; BASO ABS # 0.03 K/uL (0-0.2); COMPLETE YES; EOS % 0.2 %; IG% 0.3 %; LYMPH % 4.8 %; LYMPH ABS # 0.58 K/uL (1.2-3.4); MEAN PLATELET VOLUME 11.4 fL (7.4-10.4); MONO % 11.8 %; NEUT % 82.7 %; PLATELET COUNT 87 K/uL (130-400)
== END ==
LOC: C.LABCC 09:02
PROVIDERS: ATTEND Internal Medicine
DX: R50.9 Fever, unspecified (principal); R09.89 Other specified symptoms and signs involving the circulatory and respiratory systems; R41.0 Disorientation, unspecified

== ENCOUNTER → 2016-11-18 | Outpatient (CLI) | payer OTHER, MEDICARE ==
--- NOTE | 2016-11-18 08:47 | DIAGNOSTIC IMAGING REPORT ---
ABDOMINAL ULTRASOUND, RIGHT UPPER QUADRANT HISTORY: Pain. Nausea. RUQ ABD Pain, cirrhosis, PT WENT TO LAB FIRST. COMPARISON: 04/21/2016 FINDINGS: Pancreas: The pancreas demonstrates a normal echotexture. Liver: Heterogeneous signal character. Potential components of fatty infiltration. Trace. Ascites. Mild cirrhotic change. Gallbladder: No gallbladder wall thickening. No gallstones. CBD: 8 mm slightly diminished as compared to the prior study Right kidney: No hydronephrosis. IMPRESSION: 1. Moderate fatty infiltration of liver with mild cirrhotic change. 2. Mild prominence of the common bile duct a millimeters diminished from the prior study. 3. Trace perihepatic ascites. 4. No major change compared to the prior study. Electronically signed by: Alberto Ferrari M.D. 11/18/2016 8:46 AM Dictated Date/Time: 11/18/2016 8:43 AM
[2016-11-18 09:40] LABS: BASO % 0.7 %; BASO ABS # 0.07 K/uL (0-0.2); COMPLETE YES; EOS % 3.4 %; HEMATOCRIT 35.7 % (42-52); IG% 0.4 %; LYMPH ABS # 1.99 K/uL (1.2-3.4); MEAN CELL VOLUME 102.9 fL (80-100); MEAN CORPUSCULAR HEMOGLOBIN 35.4 pg (25-34); MEAN CORPUSCULAR HGB CONC 34.5 g/dl (32-36); MONO % 10.6 %; NEUT % 64.9 %; PLATELET COUNT 160 K/uL (130-400); RED BLOOD COUNT 3.47 M/uL (4.7-6.1); WHITE BLOOD COUNT 9.96 K/uL (4.8-10.8)
[2016-11-18 09:46] LABS: CALCIUM 9.1 mg/dl (8.5-10.1)
[2016-11-18 09:54] LABS: ALT/SGPT 21 U/L (12-78); BLOOD UREA NITROGEN 29 mg/dl (7-18); BUN/CREATININE RATIO 16.1 (10-20); CARBON DIOXIDE 24 mmol/L (21-32); CHLORIDE 108 mmol/L (98-107); GLUCOSE 109 mg/dl (70-99); POTASSIUM 4.5 mmol/L (3.5-5.1); SODIUM 140 mmol/L (136-145)
[2016-11-18 09:57] LABS: ALB/GLOB RATIO 0.6 (0.9-2); ALKALINE PHOSPHATASE 117 U/L (45-117); AST/SGOT 36 U/L (15-37)
[2016-11-19 11:09] LABS: AFP TUMOR MARKER SERUM 4.6 NG/ML (<6.1)
== END | disposition home or self-care (01) ==
LOC: C.ULTR 07:41
PROVIDERS: ATTEND Internal Medicine
DX: K74.60 Unspecified cirrhosis of liver (principal); K76.0 Fatty (change of) liver, not elsewhere classified

== ENCOUNTER → 2016-11-26 | Outpatient (CLI) | payer OTHER, MEDICARE ==
[2016-11-26 13:12] LABS: BLOOD UREA NITROGEN 19 mg/dl (7-18); BUN/CREATININE RATIO 14.2 (10-20); CALCIUM 8.5 mg/dl (8.5-10.1); CARBON DIOXIDE 27 mmol/L (21-32); CHLORIDE 109 mmol/L (98-107); GLUCOSE 86 mg/dl (70-99); POTASSIUM 4.8 mmol/L (3.5-5.1); SODIUM 141 mmol/L (136-145)
== END ==
LOC: C.LABCC 11:31
PROVIDERS: ATTEND Internal Medicine
DX: N18.3 Chronic kidney disease, stage 3 (moderate) (principal)

== ENCOUNTER → 2016-12-10 | Outpatient (CLI) | payer OTHER, MEDICARE ==
[2016-12-10 12:38] LABS: URINE APPEARANCE CLEAR (CLEAR); URINE BILIRUBIN NEG (NEG); URINE COLOR YELLOW; URINE NITRITE NEG (NEG); URINE PH 5.5 (4.5-7.5); UROBILINOGEN NEG (NEG)
[2016-12-10 12:55] LABS: MANUAL MICROSCOPIC REQUIRED? NO; REVIEW REQ? NO
== END | disposition home or self-care (01) ==
LOC: C.LABCC 12:33
PROVIDERS: ATTEND Internal Medicine
DX: R30.0 Dysuria (principal)

== ENCOUNTER → 2016-12-31 | Outpatient (CLI) | payer OTHER, MEDICARE ==
[2017-01-01 01:58] LABS: URINE APPEARANCE CLEAR (CLEAR); URINE BILIRUBIN NEG (NEG); URINE COLOR YELLOW; URINE NITRITE NEG (NEG); URINE PH 5.5 (4.5-7.5); URINE SPECIFIC GRAVITY 1.011 (1.000-1.030); UROBILINOGEN NEG (NEG)
[2017-01-01 01:59] LABS: MANUAL MICROSCOPIC REQUIRED? NO; REVIEW REQ? NO
== END ==
LOC: C.LABCC 20:30
PROVIDERS: ATTEND Internal Medicine
DX: R35.0 Frequency of micturition (principal); R46.89 Other symptoms and signs involving appearance and behavior

== ENCOUNTER → 2017-02-16 | Outpatient (CLI) | payer OTHER, MEDICARE ==
[2017-02-16 11:05] LABS: BASO % 0.4 %; BASO ABS # 0.07 K/uL (0-0.2); COMPLETE YES; IG% 0.3 %; LYMPH % 10.4 %; LYMPH ABS # 1.77 K/uL (1.2-3.4); MEAN CELL VOLUME 106.4 fL (80-100); MEAN CORPUSCULAR HEMOGLOBIN 36.9 pg (25-34); MEAN CORPUSCULAR HGB CONC 34.7 g/dl (32-36); MEAN PLATELET VOLUME 11.5 fL (7.4-10.4); MONO % 7.5 %; NEUT % 77.4 %; PLATELET COUNT 100 K/uL (130-400); RED BLOOD COUNT 2.82 M/uL (4.7-6.1); WHITE BLOOD COUNT 16.94 K/uL (4.8-10.8)
[2017-02-16 11:18] LABS: BLOOD UREA NITROGEN 37 mg/dl (7-18); BUN/CREATININE RATIO 18.3 (10-20); CALCIUM 8.7 mg/dl (8.5-10.1); CARBON DIOXIDE 27 mmol/L (21-32); CHLORIDE 107 mmol/L (98-107); GLUCOSE 86 mg/dl (70-99); POTASSIUM 3.9 mmol/L (3.5-5.1); SODIUM 140 mmol/L (136-145)
== END | disposition home or self-care (01) ==
LOC: C.LABCC 09:18
PROVIDERS: ATTEND Internal Medicine
DX: R05 Cough (principal); R60.9 Edema, unspecified

== ENCOUNTER → 2017-02-19 | Outpatient (CLI) | payer OTHER, MEDICARE ==
[2017-02-19 08:43] LABS: BASO % 0.5 %; BASO ABS # 0.05 K/uL (0-0.2); COMPLETE YES; EOS % 4.5 %; HEMATOCRIT 32.2 % (42-52); IG% 0.8 %; LYMPH % 18.2 %; LYMPH ABS # 1.77 K/uL (1.2-3.4); MEAN CELL VOLUME 105.2 fL (80-100); MEAN CORPUSCULAR HEMOGLOBIN 36.3 pg (25-34); MEAN CORPUSCULAR HGB CONC 34.5 g/dl (32-36); MEAN PLATELET VOLUME 11.2 fL (7.4-10.4); MONO % 16.6 %; NEUT % 59.4 %; PLATELET COUNT 106 K/uL (130-400); RED BLOOD COUNT 3.06 M/uL (4.7-6.1); WHITE BLOOD COUNT 9.75 K/uL (4.8-10.8)
[2017-02-19 08:51] LABS: BLOOD UREA NITROGEN 29 mg/dl (7-18); BUN/CREATININE RATIO 16.8 (10-20); CARBON DIOXIDE 29 mmol/L (21-32); CHLORIDE 103 mmol/L (98-107); GLUCOSE 87 mg/dl (70-99); POTASSIUM 4.4 mmol/L (3.5-5.1); SODIUM 136 mmol/L (136-145)
== END ==
LOC: C.LABCC 08:05
PROVIDERS: ATTEND Internal Medicine
DX: N17.9 Acute kidney failure, unspecified (principal); D72.829 Elevated white blood cell count, unspecified

== ENCOUNTER → 2017-02-26 | Outpatient (CLI) | payer OTHER, MEDICARE ==
[2017-02-26 11:02] LABS: BLOOD UREA NITROGEN 19 mg/dl (7-18); BUN/CREATININE RATIO 12.1 (10-20); CARBON DIOXIDE 29 mmol/L (21-32); CHLORIDE 104 mmol/L (98-107); GLUCOSE 83 mg/dl (70-99); POTASSIUM 4.3 mmol/L (3.5-5.1); SODIUM 139 mmol/L (136-145)
== END ==
LOC: C.LABCC 09:55
PROVIDERS: ATTEND Internal Medicine
DX: N18.9 Chronic kidney disease, unspecified (principal)

== ENCOUNTER → 2017-05-28 | Outpatient (CLI) | payer OTHER, MEDICARE ==
[2017-05-28 08:43] LABS: BLOOD UREA NITROGEN 24 mg/dl (7-18); BUN/CREATININE RATIO 12.8 (10-20); CALCIUM 9.3 mg/dl (8.5-10.1); CARBON DIOXIDE 25 mmol/L (21-32); CHLORIDE 106 mmol/L (98-107); CREATININE 1.87 mg/dl (0.60-1.40); GLUCOSE 101 mg/dl (70-99); POTASSIUM 4.9 mmol/L (3.5-5.1); SODIUM 138 mmol/L (136-145)
== END ==
LOC: C.LABCC 08:12
PROVIDERS: ATTEND Internal Medicine
DX: R60.0 Localized edema (principal)

== ENCOUNTER → 2017-05-30 | Outpatient (CLI) | payer OTHER, MEDICARE ==
[2017-05-30 10:28] LABS: HEMATOCRIT 36.2 % (42-52); MEAN CELL VOLUME 106.8 fL (80-100); MEAN CORPUSCULAR HEMOGLOBIN 37.8 pg (25-34); MEAN CORPUSCULAR HGB CONC 35.4 g/dl (32-36); MEAN PLATELET VOLUME 10.5 fL (7.4-10.4); PLATELET COUNT 129 K/uL (130-400); RED BLOOD COUNT 3.39 M/uL (4.7-6.1); WHITE BLOOD COUNT 9.88 K/uL (4.8-10.8)
[2017-05-30 10:48] LABS: URINE APPEARANCE CLEAR (CLEAR); URINE BILIRUBIN NEG (NEG); URINE COLOR DK YELLOW; URINE NITRITE NEG (NEG); URINE SPECIFIC GRAVITY 1.019 (1.000-1.030); UROBILINOGEN NEG (NEG)
[2017-05-30 10:56] LABS: BLOOD UREA NITROGEN 24 mg/dl (7-18); BUN/CREATININE RATIO 13.1 (10-20); CALCIUM 9.2 mg/dl (8.5-10.1); CARBON DIOXIDE 26 mmol/L (21-32); CHLORIDE 104 mmol/L (98-107); CREATININE 1.87 mg/dl (0.60-1.40); GLUCOSE 124 mg/dl (70-99); SODIUM 136 mmol/L (136-145)
[2017-05-30 10:56] LABS: MANUAL MICROSCOPIC REQUIRED? NO; REVIEW REQ? NO
== END ==
LOC: C.LAB 09:52
PROVIDERS: ATTEND Internal Medicine
DX: R74.8 Abnormal levels of other serum enzymes (principal); R53.83 Other fatigue

== ENCOUNTER → 2017-06-01 | Outpatient (CLI) | payer OTHER, MEDICARE ==
[2017-06-01 10:05] LABS: HEMATOCRIT 35.6 % (42-52); MEAN CELL VOLUME 106.9 fL (80-100); MEAN CORPUSCULAR HEMOGLOBIN 37.2 pg (25-34); MEAN CORPUSCULAR HGB CONC 34.8 g/dl (32-36); MEAN PLATELET VOLUME 10.7 fL (7.4-10.4); PLATELET COUNT 133 K/uL (130-400); RED BLOOD COUNT 3.33 M/uL (4.7-6.1); WHITE BLOOD COUNT 8.24 K/uL (4.8-10.8)
[2017-06-01 10:24] LABS: BLOOD UREA NITROGEN 25 mg/dl (7-18); BUN/CREATININE RATIO 12.5 (10-20); CALCIUM 9.3 mg/dl (8.5-10.1); CARBON DIOXIDE 26 mmol/L (21-32); CHLORIDE 103 mmol/L (98-107); CREATININE 1.99 mg/dl (0.60-1.40); GLUCOSE 155 mg/dl (70-99); POTASSIUM 4.8 mmol/L (3.5-5.1); SODIUM 137 mmol/L (136-145)
== END ==
LOC: C.LAB 08:02
PROVIDERS: ATTEND Internal Medicine
DX: R53.83 Other fatigue (principal)

== ENCOUNTER → 2017-08-13 | Outpatient (CLI) | payer OTHER, MEDICARE ==
[~2017-08-13] MED LIST changes: -FOLI1TAB7 PO; +FOLI1TAB8 PO
[2017-08-13 13:12] LABS: BASO % 0.7 %; BASO ABS # 0.06 K/uL (0-0.2); EOS % 5.1 %; EOS ABS # 0.43 K/uL (0-0.5); HEMATOCRIT 31.6 % (42-52); HEMOGLOBIN 11.2 g/dL (14.0-18.0); IG# 0.01 K/uL (0.00-0.02); LYMPH % 16.4 %; LYMPH ABS # 1.38 K/uL (1.2-3.4); MEAN CELL VOLUME 107.5 fL (80-100); MEAN CORPUSCULAR HEMOGLOBIN 38.1 pg (25-34); MEAN CORPUSCULAR HGB CONC 35.4 g/dl (32-36); MEAN PLATELET VOLUME 11.1 fL (7.4-10.4); MONO % 7.7 %; MONO ABS # 0.65 K/uL (0.11-0.59); PLATELET COUNT 123 K/uL (130-400); RED CELL DISTRIBUTION WIDTH CV 15.5 % (11.5-14.5); WHITE BLOOD COUNT 8.43 K/uL (4.8-10.8)
[2017-08-13 13:39] LABS: ALBUMIN 2.4 gm/dl (3.4-5.0); ALT/SGPT 25 U/L (12-78); BLOOD UREA NITROGEN 20 mg/dl (7-18); CALCIUM 9.4 mg/dl (8.5-10.1); CARBON DIOXIDE 27 mmol/L (21-32); CREATININE 1.78 mg/dl (0.60-1.40); GLUCOSE 287 mg/dl (70-99); POTASSIUM 4.9 mmol/L (3.5-5.1); SODIUM 134 mmol/L (136-145)
[2017-08-13 13:49] LABS: ALKALINE PHOSPHATASE 120 U/L (45-117); AST/SGOT 40 U/L (15-37); TOTAL PROTEIN 6.3 gm/dl (6.4-8.2)
== END ==
LOC: C.LABCC 12:38
PROVIDERS: ATTEND Internal Medicine
DX: R41.82 Altered mental status, unspecified (principal); R41.0 Disorientation, unspecified; R29.6 Repeated falls

== ENCOUNTER → 2017-08-14 | Outpatient (CLI) | payer OTHER, MEDICARE | LOC: C.LABCC 07:36 | PROVIDERS: ATTEND Internal Medicine | DX: R41.82 Altered mental status, unspecified (principal); R29.6 Repeated falls ==

== ENCOUNTER → 2017-08-21 | Outpatient (CLI) | payer OTHER, MEDICARE ==
[2017-08-21 08:48] LABS: HEMATOCRIT 30.6 % (42-52); HEMOGLOBIN 10.7 g/dL (14.0-18.0); MEAN CORPUSCULAR HEMOGLOBIN 37.4 pg (25-34); MEAN PLATELET VOLUME 11.5 fL (7.4-10.4); PLATELET COUNT 100 K/uL (130-400); RED CELL DISTRIBUTION WIDTH CV 15.4 % (11.5-14.5); RED CELL DISTRIBUTION WIDTH SD 60.4 fL (36.4-46.3); WHITE BLOOD COUNT 8.76 K/uL (4.8-10.8)
== END ==
LOC: C.LABCC 08:30
PROVIDERS: ATTEND Internal Medicine
DX: D64.9 Anemia, unspecified (principal)

== ENCOUNTER → 2017-08-31 | Outpatient (CLI) | payer OTHER, MEDICARE ==
[2017-08-31 09:25] LABS: HEMATOCRIT 30.6 % (42-52); HEMOGLOBIN 10.9 g/dL (14.0-18.0); MEAN CELL VOLUME 106.3 fL (80-100); MEAN CORPUSCULAR HEMOGLOBIN 37.8 pg (25-34); MEAN CORPUSCULAR HGB CONC 35.6 g/dl (32-36); RED CELL DISTRIBUTION WIDTH CV 14.9 % (11.5-14.5); RED CELL DISTRIBUTION WIDTH SD 58.2 fL (36.4-46.3)
[2017-08-31 09:44] LABS: BASO % 1.1 %; BASO ABS # 0.09 K/uL (0-0.2); EOS % 6.2 %; EOS ABS # 0.51 K/uL (0-0.5); IG# 0.02 K/uL (0.00-0.02); LYMPH % 21.5 %; LYMPH ABS # 1.76 K/uL (1.2-3.4); MEAN PLATELET VOLUME 11.5 fL (7.4-10.4); MONO % 9.6 %; MONO ABS # 0.79 K/uL (0.11-0.59); NEUT % 61.4 %; NEUT ABS # 5.03 K/uL (1.4-6.5); PLATELET COUNT 97 K/uL (130-400)
== END ==
LOC: C.LABCC 09:03
PROVIDERS: ATTEND Internal Medicine
DX: D63.8 Anemia in other chronic diseases classified elsewhere (principal)

== ENCOUNTER → 2017-09-07 | Outpatient (CLI) | payer OTHER, MEDICARE ==
[2017-09-07 15:01] LABS: BLOOD UREA NITROGEN 22 mg/dl (7-18); CARBON DIOXIDE 25 mmol/L (21-32); CREATININE 2.07 mg/dl (0.60-1.40); GLUCOSE 228 mg/dl (70-99); POTASSIUM 4.6 mmol/L (3.5-5.1); SODIUM 135 mmol/L (136-145)
== END ==
LOC: C.LAB 14:13
PROVIDERS: ATTEND Internal Medicine
DX: I95.9 Hypotension, unspecified (principal)

== ENCOUNTER → 2017-09-08 | Outpatient (CLI) | payer OTHER, MEDICARE ==
[2017-09-08 08:17] LABS: HEMATOCRIT 31.3 % (42-52); MEAN CELL VOLUME 106.5 fL (80-100); MEAN CORPUSCULAR HEMOGLOBIN 37.4 pg (25-34); MEAN CORPUSCULAR HGB CONC 35.1 g/dl (32-36); RED CELL DISTRIBUTION WIDTH CV 14.8 % (11.5-14.5); RED CELL DISTRIBUTION WIDTH SD 58.5 fL (36.4-46.3); WHITE BLOOD COUNT 9.25 K/uL (4.8-10.8)
[2017-09-08 08:24] LABS: BASO % 0.9 %; BASO ABS # 0.08 K/uL (0-0.2); EOS % 8.5 %; EOS ABS # 0.79 K/uL (0-0.5); IG# 0.02 K/uL (0.00-0.02); LYMPH % 21.8 %; LYMPH ABS # 2.02 K/uL (1.2-3.4); MEAN PLATELET VOLUME 11.3 fL (7.4-10.4); MONO % 11.8 %; MONO ABS # 1.09 K/uL (0.11-0.59); NEUT % 56.8 %; NEUT ABS # 5.25 K/uL (1.4-6.5); PLATELET COUNT 99 K/uL (130-400)
== END | disposition home or self-care (01) ==
LOC: C.LABCC 07:56
PROVIDERS: ATTEND Internal Medicine
DX: D64.9 Anemia, unspecified (principal)

== ENCOUNTER → 2017-09-14 | Outpatient (CLI) | payer OTHER, MEDICARE ==
[2017-09-14 09:38] LABS: BLOOD UREA NITROGEN 23 mg/dl (7-18); CALCIUM 8.7 mg/dl (8.5-10.1); CARBON DIOXIDE 27 mmol/L (21-32); CREATININE 1.86 mg/dl (0.60-1.40); GLUCOSE 173 mg/dl (70-99); POTASSIUM 4.4 mmol/L (3.5-5.1); SODIUM 133 mmol/L (136-145)
== END ==
LOC: C.LABCC 09:12
PROVIDERS: ATTEND Internal Medicine
DX: I95.9 Hypotension, unspecified (principal)

== ENCOUNTER → 2017-09-16 | Outpatient (CLI) | payer OTHER, MEDICARE ==
[2017-09-16 10:01] LABS: HEMATOCRIT 28.2 % (42-52); HEMOGLOBIN 9.9 g/dL (14.0-18.0); MEAN CELL VOLUME 106.8 fL (80-100); MEAN CORPUSCULAR HEMOGLOBIN 37.5 pg (25-34); MEAN CORPUSCULAR HGB CONC 35.1 g/dl (32-36); RED CELL DISTRIBUTION WIDTH CV 14.8 % (11.5-14.5); RED CELL DISTRIBUTION WIDTH SD 57.7 fL (36.4-46.3); WHITE BLOOD COUNT 8.03 K/uL (4.8-10.8)
[2017-09-16 10:02] LABS: MEAN PLATELET VOLUME 10.8 fL (7.4-10.4); PLATELET COUNT 93 K/uL (130-400)
== END ==
LOC: C.LABCC 09:02
PROVIDERS: ATTEND Internal Medicine
DX: D64.9 Anemia, unspecified (principal)

== ENCOUNTER → 2017-09-22 | Outpatient (CLI) | payer OTHER, MEDICARE ==
[2017-09-22 08:29] LABS: BLOOD UREA NITROGEN 16 mg/dl (7-18); CALCIUM 8.5 mg/dl (8.5-10.1); CARBON DIOXIDE 26 mmol/L (21-32); CREATININE 1.69 mg/dl (0.60-1.40); GLUCOSE 93 mg/dl (70-99); POTASSIUM 4.1 mmol/L (3.5-5.1); SODIUM 139 mmol/L (136-145)
== END | disposition home or self-care (01) ==
LOC: C.LABCC 07:55
PROVIDERS: ATTEND Internal Medicine
DX: E87.1 Hypo-osmolality and hyponatremia (principal); N18.9 Chronic kidney disease, unspecified

== ENCOUNTER → 2017-10-01 | Outpatient (CLI) | payer OTHER, MEDICARE ==
[2017-10-01 08:20] LABS: HEMATOCRIT 30.1 % (42-52); HEMOGLOBIN 10.5 g/dL (14.0-18.0); MEAN CELL VOLUME 107.1 fL (80-100); MEAN CORPUSCULAR HEMOGLOBIN 37.4 pg (25-34); MEAN CORPUSCULAR HGB CONC 34.9 g/dl (32-36); MEAN PLATELET VOLUME 10.7 fL (7.4-10.4); PLATELET COUNT 114 K/uL (130-400); RED CELL DISTRIBUTION WIDTH CV 15.3 % (11.5-14.5); RED CELL DISTRIBUTION WIDTH SD 59.9 fL (36.4-46.3); WHITE BLOOD COUNT 9.57 K/uL (4.8-10.8)
== END | disposition home or self-care (01) ==
LOC: C.LABCC 07:55
PROVIDERS: ATTEND Internal Medicine
DX: D64.9 Anemia, unspecified (principal)

== ENCOUNTER → 2017-10-08 | Outpatient (CLI) | payer OTHER, MEDICARE | END | disposition home or self-care (01) | LOC: C.LAB 07:57 | PROVIDERS: ATTEND Internal Medicine | DX: K74.60 Unspecified cirrhosis of liver (principal) ==